=== PATIENT | male | born 1935 | race Caucasian/White ===

== ENCOUNTER 2016-07-11 09:49 | Inpatient (IN) | payer OTHER ==
[2016-07-11] MEDS ORDERED: NS 1,000 ML IV ONE (09:52)
--- NOTE | 2016-07-11 09:54 | EDPHY ---
H & P Time Seen by Provider: 07/11/16 09:50 HPI/ROS: CHIEF COMPLAINT: Fever HISTORY OF PRESENT ILLNESS: History was provided by the paramedics. This is an 81-year-old male with a history of diabetes who arrives via EMS from assisted living situation ([facility]) in [place]. I am told that he has had fever for the past 2 days. Today his family notes that he is weak and lethargic. They were unable to get him into the car and called 911. Paramedics found him to be tachycardic and hypertensive. His blood sugar was 121. He received 500 cc of IV fluid and route. By dope firer's report, he has not had cough. His children and have arrived and provided additional history. The daughter tells me that he has had a cough on and off recently. He was reportedly found on the floor of his apartment at 5:30 this morning by the staff at his memory care facility. They were able to get him back into bed. At that time he had a temperature 101.6 and was given Tylenol at 6:30 a.m.. When his family was notified they were advised to take him to Urgent Care. However, they were unable to get him into a car, called 911, and he has been transported here. The patient himself tells me that he is in no pain. However, he does have significant memory difficulties at baseline and his daughter tells me that his thinking seems more sluggish than usual today. REVIEW OF SYSTEMS: Patient is unable to provide. Source: Family, EMS Exam Limitations: Clinical condition - Medical/Surgical History Hx Asthma: No Hx Chronic Respiratory Disease: No Hx Diabetes: Yes Hx Cardiac Disease: Yes Hx Renal Disease: No Hx Cirrhosis: No Hx Alcoholism: No Hx HIV/AIDS: No Hx Splenectomy or Spleen Trauma: No Other PMH: 1. Insulin-dependent diabetes. 2. Hypertension. 3. Pituitary gland surgery. 4. Prostate cancer. 5. Hyperlipidemia. 6. left hip replacement summer. 7. GERD. 8. Macular degeneration. 9. Memory impairment. 10. Coronary artery disease - Social History Smoking Status: Former smoker Alcohol Use: None Additional Social History: Lives in a [facility] with his . - Physical Exam Exam: General Appearance: Alert. Vital signs reviewed. Heart rate 112, blood pressure 179/90, room air pulse ox 88%. Afebrile. Eyes: Pupils equal and round, no conjunctival injection, no discharge. Anicteric. ENT, Mouth: Mucous membranes are slightly dry, no oropharyngeal erythema or edema. Neck: No lymphadenopathy, supple. Trachea midline. Respiratory: Lungs sounds are distant to auscultation; no wheezes, rales, or rhonchi. Cardiovascular: Regular rate and rhythm; no murmur, rub, or gallop. Gastrointestinal: Abdomen is soft and nontender, no masses or organomegaly, bowel sounds normal. Skin: Warm and dry, no rashes on exposed skin, normal color. Back: Nontender to palpation over the thoracolumbar spine. No CVAT. Probable lipoma left upper back, lateral to the vertebral column. Extremities: No lower extremity edema, no calf tenderness or swelling. Neurological: Awake. He can provide his name but is unable to state his location or the year. Moving all four extremities easily and equally. CHELSIE. Pupils are small and reactive. Extraocular movements intact. Facial expression symmetric. Tongue midline. Psychiatric: no agitation. Constitutional: Initial Vital Signs Temperature (C) 37.2 C 07/11/16 09:50 Heart Rate 112 H 07/11/16 09:50 Respiratory Rate 19 07/11/16 09:50 Blood Pressure 179/90 H 07/11/16 09:50 O2 Sat (%) 88 L 07/11/16 09:50 O2 Delivery Mode Nasal Cannula O2 (L/minute) 2 Allergies/Adverse Reactions: triazolam [From Halcion] Allergy (Severe, Verified 07/11/16 10:12) Anxiety Home Medications: Medication Instructions Recorded Atorvastatin Calcium [Lipitor 40 40 mg PO DAILY 11/27/15 mg (*)] Clopidogrel Bisulfate [Plavix (*)] 75 mg PO DAILY 11/27/15 Cyanocobalamin [Vitamin B12 (*)] 1,000 mcg PO DAILY 11/27/15 Glucosamine Sulfate [Glucosamine 500 mg PO DAILY 11/27/15 Sulfate 500 MG (*)] Metoprolol Tartrate [Lopressor 25 25 mg PO BID 11/27/15 mg (*)] Pantoprazole Sodium [Protonix 40mg 40 mg PO DAILY 11/27/15 (*)] Somatropin [Humatrope] 0.4 mg SC 11/27/15 Insulin Glargine,Hum.rec.anlog 12 unit SQ HS 12/18/15 [Lanmarisolus Nicholeostar] Aspirin EC [Aspirin EC 325 mg (*)] 325 mg PO DAILY #0 tab 12/19/15 Acetaminophen [Tylenol 325mg (*)] 650 mg PO TID 07/11/16 Bisacodyl [Dulcolax] 10 mg RC Q4D PRN 07/11/16 C/E/Zn/Cu/OM3/DHA/EPA/LUT/ZEAX 2 each PO DAILY 07/11/16 [Preservision Areds 2 Softgel] Calcium Carb W/Vit D [Calcium Carb 500 mg PO BID 07/11/16 W/Vit D 500/200 (*)] Herbals/Supplements -Info Only 1 ea PO DAILY 07/11/16 Levothyroxine [Synthroid 112 mcg 112 mcg PO DAILY06 07/11/16 (*)] Multivitamins [Multivitamin (*)] 1 each PO DAILY 07/11/16 Sennosides/Docusate Sodium 1 each PO BID 07/11/16 [Senokot-S (OTC)] Sodium Chloride [Salt Tablet] 1 gm PO DAILY 07/11/16 celeCOXIB [Celebrex (*)] 200 mg PO DAILY 07/11/16 Medical Decision Making ED Course/Re-evaluation: 81-year-old male with some cognitive dysfunction at baseline who has had a change in mental status this morning with increasing lethargy and confusion, according to his family. He has been febrile with a cough. Was found on the ground in his apartment this morning; no fall was witnessed. My initial impression was that his altered mental status was likely secondary to fever. However, given the possibility of a fall, head CT was performed. This shows atrophy but no bleed or acute changes. He does not meet sepsis criteria. He was tachycardic on arrival but had no other laboratory or vital sign findings that would suggest sepsis. Lactate was 1.2. He was given Tylenol for treatment of fever. He received 2 L of normal saline in the emergency department. He is noted to be hyponatremic with a sodium of 131. Chest x-ray suggestive of congestive heart failure, but the possibility of bilateral infiltrates is also raised in the radiology report. Pneumonia is more consistent with his clinical presentation. He was given a dose of cefepime , with the thought that he lives in a long term setting. Urinalysis, cath urine, is negative for infection. Blood cultures have been obtained. He has had pituitary surgery and is on hemoglobin hormone and thyroid replacement. He was given hydrocortisone, stress dose. Influenza test was positive for influenza A. He was given Tamiflu in the emergency department. He is being admitted for observation and further treatment as warranted. I suspect that his encephalopathy will clear as his influenza subsides. Differential Diagnosis: I considered a differential diagnosis including but not limited to pneumonia, urinary tract infection, viral syndrome, and influenza. I considered a differential diagnosis of altered all mental status including but not limited to hypoglycemia, infectious process, electrolyte abnormality, head injury and intoxicants. - Data Points Laboratory Results: Laboratory Results 07/11/16 09:50 07/11/16 09:50 07/11/16 07/11/16 07/11/16 11:27 11:01 10:25 WBC RBC Hgb Hct MCV MCH MCHC RDW Plt Count MPV Neut % (Auto) Lymph % (Auto) [place] % (Auto) Eos % (Auto) Baso % (Auto) Nucleat RBC Rel Count Absolute Neuts (auto) Absolute Lymphs (auto) Absolute Monos (auto) Absolute Eos (auto) Absolute Basos (auto) Absolute Nucleated RBC Immature Gran % Immature Gran # PT INR APTT VBG Lactic Acid 1.2 mmol/L (0.7-2.1) Sodium Potassium Chloride Carbon Dioxide Anion Gap BUN Creatinine Estimated GFR Glucose Calcium Total Bilirubin Urine Color YELLOW Urine Appearance CLEAR Urine pH 7.0 (5.0-7.5) Ur Specific [place] 1.014 (1.002-1.030) Urine Protein NEGATIVE (NEGATIVE) Urine Ketones TRACE H (NEGATIVE) Urine Blood NEGATIVE (NEGATIVE) Urine Nitrate NEGATIVE (NEGATIVE) Urine Bilirubin NEGATIVE (NEGATIVE) Urine Urobilinogen NEGATIVE EU (0.2-1.0) Ur Leukocyte Esterase NEGATIVE (NEGATIVE) Urine Glucose NEGATIVE (NEGATIVE) Influenza Typ A,B (DFA) TNP Influenza A & B (PCR) POSITIVE FLU A H (NEGATIVE) 07/11/16 09:50 WBC 5.31 10^3/uL (3.80-9.50) RBC 5.17 10^6/uL (4.40-6.38) Hgb 15.5 g/dL (13.7-17.5) Hct 44.0 % (40.0-51.0) MCV 85.1 fL (81.5-99.8) MCH 30.0 pg (27.9-34.1) MCHC 35.2 g/dL (32.4-36.7) RDW 15.1 % (11.5-15.2) Plt Count 149 L 10^3/uL (150-400) MPV 12.0 H fL (8.7-11.7) Neut % (Auto) 70.4 % (39.3-74.2) Lymph % (Auto) 13.9 L % (15.0-45.0) [place] % (Auto) 14.9 H % (4.5-13.0) Eos % (Auto) 0.2 L % (0.6-7.6) Baso % (Auto) 0.4 % (0.3-1.7) Nucleat RBC Rel Count 0.0 % (0.0-0.2) Absolute Neuts (auto) 3.74 10^3/uL (1.70-6.50) Absolute Lymphs (auto) 0.74 L 10^3/uL (1.00-3.00) Absolute Monos (auto) 0.79 10^3/uL (0.30-0.80) Absolute Eos (auto) 0.01 L 10^3/uL (0.03-0.40) Absolute Basos (auto) 0.02 10^3/uL (0.02-0.10) Absolute Nucleated RBC 0.00 10^3/uL (0-0.01) Immature Gran % 0.2 % (0.0-1.1) Immature Gran # 0.01 10^3/uL (0.00-0.10) PT 15.4 H SEC (12.0-15.0) INR 1.22 H (0.83-1.16) APTT 32.6 SEC (23.0-38.0) VBG Lactic Acid Sodium 131 L mEq/L (134-144) Potassium 4.1 mEq/L (3.5-5.2) Chloride 97 mEq/L (97-110) Carbon Dioxide 23 mEq/l (22-31) Anion Gap 11 mEq/L (8-16) BUN 12 mg/dL (7-23) Creatinine 0.9 mg/dL (0.7-1.3) Estimated GFR > 60 Glucose 103 H mg/dL (70-100) Calcium 8.7 mg/dL (8.5-10.4) Total Bilirubin 1.0 mg/dL (0.1-1.4) Urine Color Urine Appearance Urine pH Ur Specific [place] Urine Protein Urine Ketones Urine Blood Urine Nitrate Urine Bilirubin Urine Urobilinogen Ur Leukocyte Esterase Urine Glucose Influenza Typ A,B (DFA) Influenza A & B (PCR) Medications Given: Discontinued Medications Acetaminophen (Tylenol) 1,000 mg PO EDNOW ONE Stop: 07/11/16 11:22 Last Admin: 07/11/16 11:31 Dose: Not Given Hydrocortisone (Solucortef) 100 mg IVP EDNOW ONE Stop: 07/11/16 10:30 Last Admin: 07/11/16 11:12 Dose: 100 mg Sodium Chloride (Ns) 1,000 mls @ 0 mls/hr IV ONCE ONE PRN Reason: Wide Open Stop: 07/11/16 09:53 Last Admin: 07/11/16 10:08 Dose: 1,000 mls Cefepime HCl 1 gm/ Dextrose 50 mls @ 100 mls/hr IV EDNOW ONE PRN Reason: Protocol Stop: 07/11/16 12:02 Last Admin: 07/11/16 12:29 Dose: 50 mls Metoprolol Tartrate (Lopressor Injection) 5 mg IVP ONCE ONE Stop: 07/11/16 15:01 Last Admin: 07/11/16 16:16 Dose: 5 mg Departure - Departure Disposition: Acute Care Hospital Not [facility] Clinical Impression: Influenza due to influenza virus, type A, human Condition: Fair
[2016-07-11 10:06] LABS: % IMMATURE GRANULYOCYTES 0.2 % (0.0-1.1); ABSOLUTE IMMATURE GRANULOCYTES 0.01 10^3/uL (0.00-0.10); ADD DIFF? NO; ADD MORPH? NO; ADD SCAN? NO; ATYPICAL LYMPHOCYTE FLAG 20 (0-99); FRAGMENT RBC FLAG 0 (0-99); HEMOGLOBIN 15.5 g/dL (13.7-17.5); LEFT SHIFT FLG 0 (0-99); LIPEMIA HEMOLYSIS FLAG 90 (0-99); MEAN CELL HEMOGLOBIN CONCENTR. 35.2 g/dL (32.4-36.7); MEAN CELL VOLUME 85.1 fL (81.5-99.8); PLATELET CLUMPS FLAG 10 (0-99); PLATELET COUNT 149 10^3/uL (150-400); RED BLOOD CELL COUNT 5.17 10^6/uL (4.40-6.38); RED CELL DISTRIBUTION WIDTH 15.1 % (11.5-15.2)
[2016-07-11 10:18] LABS: INR 1.22 (0.83-1.16); PROTIME(PATIENT) 15.4 SEC (12.0-15.0)
[2016-07-11 10:19] LABS: APTT 32.6 SEC (23.0-38.0)
[2016-07-11] MEDS ORDERED: HYDROCORTISONE 100 MG/2 ML VIAL IVP ONE (10:29)
[2016-07-11 10:36] LABS: ANION GAP 11 mEq/L (8-16); CALCIUM 8.7 mg/dL (8.5-10.4); CARBON DIOXIDE 23 mEq/l (22-31); CHLORIDE 97 mEq/L (97-110); CREATININE 0.9 mg/dL (0.7-1.3); GLOMERULAR FILTRATION RATE > 60; GLUCOSE 103 mg/dL (70-100); POTASSIUM 4.1 mEq/L (3.5-5.2); SODIUM 131 mEq/L (134-144)
--- NOTE | 2016-07-11 11:13 | DX ---
Chest, Two Views July 11, 2016 at 0936 Hours History: Shortness of breath, meets sepsis criteria, suspected infection. Comparison: October 2015. Findings: Cardiac silhouette is mildly enlarged. Atherosclerotic aorta. Median sternotomy wires. Bila teral interstitial opacities in the mid and lower lung nichols, probably representing pulmonary edema. Impressions: 1. Suspect congestive heart failure. 2. Superimposed interstitial pneumonia bilateral lower lobes cannot be excluded.
[2016-07-11 11:16] LABS: COLOR YELLOW; LEUKOCYTE ESTERASE,URINE NEGATIVE (NEGATIVE); NITRITE,URINE NEGATIVE (NEGATIVE)
[2016-07-11] MEDS ORDERED: ACETAMINOPHEN 500 MG TAB PO ONE (11:21)
--- NOTE | 2016-07-11 11:21 | CT ---
CT Brain (Without Contrast) July 11, 2016 at 1045 Hours History: Altered mental status. Comparison: October 2014. Technique: Axial computed tomographic images of the brain without contrast. Dose reduction techniques were utilized. Findings: Ventricles, cisterns, and sulci are widened consistent with atrophy. No hydrocephalus, midl ine shift/herniation, or epidural/subdural hematomas. No acute intraparenchymal hemorrhage or mass ef fect. Cerebrovascular atherosclerosis. Hypodensities in the white matter of bilateral cerebral hemisp heres. Bone windows demonstrate no displaced fractures. Moderate bilateral ethmoid and right maxilla ry sinusitis with mucosal thickening. Postsurgical changes sphenoid sinuses. Empty sella turcica from prior pituitary resection. Impressions: 1. Moderate atrophy. 2. No acute hemorrhage, hydrocephalus, or mass effect. 3. Cerebrovascular atherosclerosis. 4. No definite acute infarct. 5. Moderate microvascular ischemic gliosis. 6. Moderate sinusitis, worse in the right maxillary sinus. 7. Consider MRI of the brain without and with contrast enhancement, if there is continued clinical co ncern.
[2016-07-11] MEDS ORDERED: ACETAMINOPHEN 650 MG SUPP PR ONE (11:23)
[2016-07-11] MEDS ORDERED: CEFEPIME HCL 1 GM in D5W 50 ML IV ONE (11:33)
[2016-07-11] MEDS ORDERED: ACETAMINOPHEN 650 MG SUPP PR PRN (12:00)
[2016-07-11] MEDS: OSELTAMIVIR PHOSPHATE 75 MG CAP PO ONE (13:00)
[2016-07-11] MEDS ORDERED: OSELTAMIVIR PHOSPHATE 75 MG CAP ONE (13:01)
[2016-07-11] MEDS ORDERED: ALBUTEROL 3 ML DEYVIAL IH PRN (14:25)
[2016-07-11] MEDS ORDERED: ONDANSETRON DISINTEGRATING 4 MG TAB PO PRN (14:25)
[2016-07-11] MEDS ORDERED: ACETAMINOPHEN 325 MG TAB PO PRN (14:25)
[2016-07-11] MEDS ORDERED: ONDANSETRON 4 MG/2 ML VIAL IVP PRN (14:25)
[2016-07-11] MEDS ORDERED: NS 1,000 ML IV SCH (14:30)
[2016-07-11] MEDS ORDERED: BISACODYL 10 MG SUPP PR PRN (14:30)
--- NOTE | 2016-07-11 14:41 | PDGENHP ---
History and Physical - Chief Complaint fever - History of Present Illness 81 yo male with h/o cognitive dysfunction and CAD presents to ED from his memory care unit where he lives with his who has alzheimer's, with fever and weakness. He was found on the floor in his room this morning and they were able to get him back to bed. He had a fever of 101.6 and was profoundly weak. His daughter reports he has been coughing, but had a dramatic change in status this morning. He has not complained of CP, SOB, N/V/D or abdominal pain. In the ED, CXR was suspicious for PNA and Influenza is positive. He is admitted to the hospital for further management. History Information - Allergies/Home Medication List Allergies/Adverse Reactions: triazolam [From Halcion] Allergy (Severe, Verified 07/11/16 10:12) Anxiety Home Medications: Atorvastatin Calcium [Lipitor 40 mg (*)] 40 mg PO DAILY 11/27/15 [Last Taken 02/24 07:30] Clopidogrel Bisulfate [Plavix (*)] 75 mg PO DAILY 11/27/15 [Last Taken 12/10/15] Cyanocobalamin [Vitamin B12 (*)] 1,000 mcg PO DAILY 11/27/15 [Last Taken ] Glucosamine Sulfate [Glucosamine Sulfate 500 MG (*)] 500 mg PO DAILY 11/27/15 [ Last Taken 12/10/15] Metoprolol Tartrate [Lopressor 25 mg (*)] 25 mg PO BID 11/27/15 [Last Taken 02/24 07:30] Pantoprazole Sodium [Protonix 40mg (*)] 40 mg PO DAILY 11/27/15 [Last Taken 02/24 07:30] Somatropin [Humatrope] 0.4 mg SC HS 11/27/15 [Last Taken 12/17/15] Insulin Glargine,Hum.rec.anlog [Lantus Solostar] 12 unit SQ HS 12/18/15 [Last Taken 12/17/15] Acetaminophen [Tylenol 325mg (*)] 650 mg PO TID 07/11/16 [Last Taken Unknown] Bisacodyl [Dulcolax] 10 mg RC Q4D PRN 07/11/16 [Last Taken Unknown] C/E/Zn/Cu/OM3/DHA/EPA/LUT/ZEAX [Preservision Areds 2 Softgel] 2 each PO DAILY [Last Taken Unknown] Calcium Carb W/Vit D [Calcium Carb W/Vit D 500/200 (*)] 500 mg PO BID 07/11/16 [ Last Taken Unknown] Herbals/Supplements -Info Only 1 ea PO DAILY 07/11/16 [Last Taken Unknown] Levothyroxine [Synthroid 112 mcg (*)] 112 mcg PO DAILY06 07/11/16 [Last Taken Unknown] Multivitamins [Multivitamin (*)] 1 each PO DAILY 07/11/16 [Last Taken Unknown] Sennosides/Docusate Sodium [Senokot-S (OTC)] 1 each PO BID 07/11/16 [Last Taken Unknown] Sodium Chloride [Salt Tablet] 1 gm PO DAILY 07/11/16 [Last Taken Unknown] celeCOXIB [Celebrex (*)] 200 mg PO DAILY 07/11/16 [Last Taken Unknown] I have personally reviewed and updated: family history, medical history, social history, surgical history - Past Medical History coronary artery disease, dementia, diabetes type 2, GERD, hypertension, hyperlipidemia - Surgical History Additional surgical history: left hip replacement summer 2015, pituitary gland surgery - Family History Additional family history: mom of a brain tumor, dad of emphysema - Social History Smoking Status: Former smoker Alcohol Use: Rarely Drug Use: None Additional social history: Lives at Memory care unit with his , who has dementia. Pt has some cognitive dysfunction Review of Systems ROS: 10pt was reviewed & negative except for what was stated in HPI & below Physical Exam Temp Pulse Resp BP Pulse Ox 37.7 C 113 H 20 179/99 H 96 07/11/16 13:46 07/11/16 13:46 07/11/16 13:46 07/11/16 13:46 07/11/16 13:46 O2 (L/minute) 2.5 Constitutional: no apparent distress Eyes: PERRL Ears, Nose, Mouth, Throat: dry mucous membranes Cardiovascular: tachycardia Respiratory: no respiratory distress Gastrointestinal: normoactive bowel sounds, soft, non-tender abdomen Skin: warm Psychiatric: encephalopathic Lab Data & Imaging Review 07/11/16 09:50 07/11/16 09:50 WBC 5.31 10^3/uL (3.80-9.50) 07/11/16 09:50 RBC 5.17 10^6/uL (4.40-6.38) 07/11/16 09:50 Hgb 15.5 g/dL (13.7-17.5) 07/11/16 09:50 Hct 44.0 % (40.0-51.0) 07/11/16 09:50 MCV 85.1 fL (81.5-99.8) 07/11/16 09:50 MCH 30.0 pg (27.9-34.1) 07/11/16 09:50 MCHC 35.2 g/dL (32.4-36.7) 07/11/16 09:50 RDW 15.1 % (11.5-15.2) 07/11/16 09:50 Plt Count 149 10^3/uL (150-400) L 07/11/16 09:50 MPV 12.0 fL (8.7-11.7) H 07/11/16 09:50 Neut % (Auto) 70.4 % (39.3-74.2) 07/11/16 09:50 Lymph % (Auto) 13.9 % (15.0-45.0) L 07/11/16 09:50 [place] % (Auto) 14.9 % (4.5-13.0) H 07/11/16 09:50 Eos % (Auto) 0.2 % (0.6-7.6) L 07/11/16 09:50 Baso % (Auto) 0.4 % (0.3-1.7) 07/11/16 09:50 Nucleat RBC Rel Count 0.0 % (0.0-0.2) 07/11/16 09:50 Absolute Neuts (auto) 3.74 10^3/uL (1.70-6.50) 07/11/16 09:50 Absolute Lymphs (auto) 0.74 10^3/uL (1.00-3.00) L 07/11/16 09:50 Absolute Monos (auto) 0.79 10^3/uL (0.30-0.80) 07/11/16 09:50 Absolute Eos (auto) 0.01 10^3/uL (0.03-0.40) L 07/11/16 09:50 Absolute Basos (auto) 0.02 10^3/uL (0.02-0.10) 07/11/16 09:50 Absolute Nucleated RBC 0.00 10^3/uL (0-0.01) 07/11/16 09:50 Immature Gran % 0.2 % (0.0-1.1) 07/11/16 09:50 Immature Gran # 0.01 10^3/uL (0.00-0.10) 07/11/16 09:50 PT 15.4 SEC (12.0-15.0) H 07/11/16 09:50 INR 1.22 (0.83-1.16) H 07/11/16 09:50 APTT 32.6 SEC (23.0-38.0) 07/11/16 09:50 VBG Lactic Acid 1.2 mmol/L (0.7-2.1) 07/11/16 11:27 Sodium 131 mEq/L (134-144) L 07/11/16 09:50 Potassium 4.1 mEq/L (3.5-5.2) 07/11/16 09:50 Chloride 97 mEq/L (97-110) 07/11/16 09:50 Carbon Dioxide 23 mEq/l (22-31) 07/11/16 09:50 Anion Gap 11 mEq/L (8-16) 07/11/16 09:50 BUN 12 mg/dL (7-23) 07/11/16 09:50 Creatinine 0.9 mg/dL (0.7-1.3) 07/11/16 09:50 Estimated GFR > 60 07/11/16 09:50 Glucose 103 mg/dL (70-100) H 07/11/16 09:50 Calcium 8.7 mg/dL (8.5-10.4) 07/11/16 09:50 Total Bilirubin 1.0 mg/dL (0.1-1.4) 07/11/16 09:50 Urine Color YELLOW 07/11/16 11:01 Urine Appearance CLEAR 07/11/16 11:01 Urine pH 7.0 (5.0-7.5) 07/11/16 11:01 Ur Specific [place] 1.014 (1.002-1.030) 07/11/16 11:01 Urine Protein NEGATIVE (NEGATIVE) 07/11/16 11:01 Urine Ketones TRACE (NEGATIVE) H 07/11/16 11:01 Urine Blood NEGATIVE (NEGATIVE) 07/11/16 11:01 Urine Nitrate NEGATIVE (NEGATIVE) 07/11/16 11:01 Urine Bilirubin NEGATIVE (NEGATIVE) 07/11/16 11:01 Urine Urobilinogen NEGATIVE EU (0.2-1.0) 07/11/16 11:01 Ur Leukocyte Esterase NEGATIVE (NEGATIVE) 07/11/16 11:01 Urine Glucose NEGATIVE (NEGATIVE) 07/11/16 11:01 Influenza Typ A,B (DFA) TNP 07/11/16 10:25 Influenza A & B (PCR) POSITIVE FLU A (NEGATIVE) H 07/11/16 10:25 Assessment & Plan Assessment: Acute hypoxemic respiratory failure secondary to influenza complicated by possible PNA - supportive care with O2, prn nebs, fluids. Treat with Tamiflu. Appearance on CXR may be viral, though will cover for bacterial PNA with Levaquin. Speech / swallow eval, NPO until cleared. Aspiration precautions. Acute encephalopathy - likely secondary to infection and volume depletion. NPO for now until speech eval. Hyponatremia - mild, suspect hypovolemia given acute illness and poor oral intake. He does take salt tablets, will continue these, along with NS and repeat Na level in am. DM - on insulin, will give reduced dose due to poor oral intake. CAD - stable, continue ASA, statin, BB Hypertension - BP elevated on arrival, continue Coreg when cleared for PO. Will give IV Metoprolol dose now and prn IV Hydralazine until he's able to resume his oral Coreg. Dementia - lives in memory care, CM consult requested. DVT PPLX - Lovenox DNR Dispo - inpt, will need >48 hrs hospitalization for ongoing management of influenza and associated hypoxemia and PNA
[2016-07-11] MEDS ORDERED: METOPROLOL TARTRATE 5 MG/5 ML INJ IVP ONE (15:00)
--- NOTE | 2016-07-11 15:33 | US ---
Ultrasound Venous Duplex/Doppler left Leg History: Pain and swelling. Findings: Ultrasound venous duplex and Doppler imaging of the common femoral vein, femoral vein, pop liteal vein, calf veins, greater saphenous vein origin, and contralateral common femoral vein demonst rates normal compressibility, color flow, and Doppler flow without deep venous thrombosis. Impression: No deep venous thrombosis left leg.
[2016-07-11] MEDS: METOPROLOL TARTRATE 25 MG TAB PO SCH ×2 (15:49→21:00)
[2016-07-11] MEDS: SODIUM CHLORIDE 1,000 MG TAB PO SCH (15:50)
[2016-07-11] MEDS ORDERED: D50W 25 GM/50 ML SYR IVP PRN (18:04)
[2016-07-11] MEDS: OSELTAMIVIR PHOSPHATE 75 MG CAP PO SCH (18:44)
[2016-07-11] MEDS: SENNOSIDES/DOCUSATE SODIUM TAB PO SCH (21:00)
[2016-07-11] MEDS: SOMATROPIN SC SCH (21:00)
[2016-07-11] MEDS: INSULIN GLARGINE 100 UNITS/ML SYRINGE SC SCH (21:32)
[2016-07-11] MEDS: hydrALAZINE 20 MG/ML VIAL IVP PRN (21:43)
[2016-07-11] MEDS ORDERED: INSULIN GLARGINE 100 UNITS/ML SYRINGE SC ONE (22:00)
[2016-07-12 05:09] LABS: ANION GAP 12 mEq/L (8-16); CALCIUM 8.1 mg/dL (8.5-10.4); CARBON DIOXIDE 22 mEq/l (22-31); CHLORIDE 100 mEq/L (97-110); CREATININE 0.9 mg/dL (0.7-1.3); GLOMERULAR FILTRATION RATE > 60; GLUCOSE 104 mg/dL (70-100); POTASSIUM 3.9 mEq/L (3.5-5.2); SODIUM 134 mEq/L (134-144)
[2016-07-12] MEDS: LEVOTHYROXINE 112 MCG TAB PO SCH (06:07)
[2016-07-12] MEDS: INSULIN LISPRO 100 UNIT/ML SC SCH ×3 (08:33→16:17)
[2016-07-12] MEDS: ENOXAPARIN 40 MG/0.4 ML SYR SC SCH (10:20)
[2016-07-12] MEDS: SENNOSIDES/DOCUSATE SODIUM TAB PO SCH ×2 (11:25→21:32)
[2016-07-12] MEDS: CLOPIDOGREL BISULFATE 75 MG TAB PO SCH (11:25)
[2016-07-12] MEDS: SODIUM CHLORIDE 1,000 MG TAB PO SCH (11:25)
[2016-07-12] MEDS: METOPROLOL TARTRATE 25 MG TAB PO SCH ×2 (11:26→21:32)
[2016-07-12] MEDS: PANTOPRAZOLE SODIUM 40 MG TAB PO SCH (11:26)
[2016-07-12] MEDS: ASPIRIN EC 325 MG TAB PO SCH (11:26)
[2016-07-12] MEDS: CYANO/VITAMIN B12 1000 MCG TAB PO SCH (11:26)
[2016-07-12] MEDS: ATORVASTATIN CALCIUM 40 MG TAB PO SCH (11:26)
[2016-07-12] MEDS: OSELTAMIVIR PHOSPHATE 75 MG CAP PO SCH ×2 (11:27→16:27)
[2016-07-12] MEDS: OSELTAMIVIR PHOSPHATE 75 MG CAP PO ONE (13:09)
--- NOTE | 2016-07-12 14:26 | HOSPPROG ---
Hospitalist Progress Note Assessment/Plan: * Influenza A - Tamiflu * Pneumonia -Levaquin * Dementia with acute metabolic encephalopathy * CAD -ASA, plavix, metoprolol * DM II -lantus Subjective: Denies complaints Objective: Vital Signs Temp Pulse Resp BP Pulse Ox 36.6 C 107 H 19 179/97 H 99 07/12/16 11:15 07/12/16 11:26 07/12/16 11:15 07/12/16 11:26 07/12/16 11:15 Laboratory Results 07/12/16 04:29 07/11/16 07/12/16 07/13/16 05:59 05:59 05:59 Intake Total 2811 Output Total 2600 Balance 211 PT 15.4 SEC (12.0-15.0) H 07/11/16 09:50 INR 1.22 (0.83-1.16) H 07/11/16 09:50 - Physical Exam Constitutional: no apparent distress, appears nourished, not in pain Cardiovascular: regular rate and rhythym, no murmur, rub, or gallop Respiratory: no respiratory distress, no rales or rhonchi, clear to auscultation Gastrointestinal: normoactive bowel sounds, soft, non-tender abdomen, no palpable masses Skin: no rashes or abrasions, no fluctuance, no induration Neurologic: No AAOx3 Psychiatric: encephalopathic, poor insight, poor judgement, poor memory, No interacting appropriately, No agitated ICD10 Worksheet Patient Problems: Problems Problem Status Diagnosed Influenza A Acute Primary localized osteoarthritis of left hip Acute
[2016-07-12] MEDS: ACETAMINOPHEN 325 MG TAB PO SCH ×2 (16:27→21:34)
[2016-07-12] MEDS: INSULIN GLARGINE 100 UNITS/ML SYRINGE SC SCH (21:36)
[2016-07-12] MEDS: SOMATROPIN SC SCH (21:41)
[2016-07-13] MEDS: LEVOTHYROXINE 112 MCG TAB PO SCH (05:09)
[2016-07-13] MEDS: INSULIN LISPRO 100 UNIT/ML SC SCH ×3 (08:30→18:02)
[2016-07-13] MEDS: ACETAMINOPHEN 325 MG TAB PO SCH ×3 (08:51→20:23)
[2016-07-13] MEDS: PANTOPRAZOLE SODIUM 40 MG TAB PO SCH (08:52)
[2016-07-13] MEDS: OSELTAMIVIR PHOSPHATE 75 MG CAP PO SCH ×2 (08:53→18:02)
[2016-07-13] MEDS: CLOPIDOGREL BISULFATE 75 MG TAB PO SCH (08:53)
[2016-07-13] MEDS: SENNOSIDES/DOCUSATE SODIUM TAB PO SCH ×2 (08:53→20:22)
[2016-07-13] MEDS: ATORVASTATIN CALCIUM 40 MG TAB PO SCH (08:53)
[2016-07-13] MEDS: ASPIRIN EC 325 MG TAB PO SCH (08:53)
[2016-07-13] MEDS: CYANO/VITAMIN B12 1000 MCG TAB PO SCH (08:53)
[2016-07-13] MEDS: PRESERVISION AREDS 2 EYE VITAMIN 1 EACH PO SCH (08:53)
[2016-07-13] MEDS: METOPROLOL TARTRATE 25 MG TAB PO SCH ×2 (08:53→20:23)
[2016-07-13] MEDS: ENOXAPARIN 40 MG/0.4 ML SYR SC SCH (08:54)
--- NOTE | 2016-07-13 16:38 | HOSPPROG ---
Hospitalist Progress Note Assessment/Plan: * Influenza A - Tamiflu * Pneumonia -Levaquin * Dementia with acute metabolic encephalopathy * CAD -ASA, plavix, metoprolol * DM II -lantus Subjective: Ready to take galvan out, was placed in ER due to severe lethargy. Objective: Vital Signs Temp Pulse Resp BP Pulse Ox 36.8 C 75 21 H 168/89 H 98 07/13/16 16:00 07/13/16 16:00 07/13/16 16:00 07/13/16 16:00 07/13/16 16:00 Laboratory Results 07/12/16 04:29 07/12/16 07/13/16 07/14/16 05:59 05:59 05:59 Intake Total 2811 Output Total 2600 1575 1001 Balance 211 -1575 -1001 PT 15.4 SEC (12.0-15.0) H 07/11/16 09:50 INR 1.22 (0.83-1.16) H 07/11/16 09:50 - Physical Exam Constitutional: no apparent distress, appears nourished, not in pain Cardiovascular: regular rate and rhythym, no murmur, rub, or gallop Respiratory: no respiratory distress, no rales or rhonchi, clear to auscultation Gastrointestinal: normoactive bowel sounds, soft, non-tender abdomen, no palpable masses Skin: no rashes or abrasions, no fluctuance, no induration Psychiatric: poor insight, poor judgement, poor memory, No encephalopathic, No agitated ICD10 Worksheet Patient Problems: Problems Problem Status Diagnosed Influenza A Acute Primary localized osteoarthritis of left hip Acute
[2016-07-13] MEDS: INSULIN GLARGINE 100 UNITS/ML SYRINGE SC SCH (20:25)
[2016-07-13] MEDS: SOMATROPIN SC SCH (21:38)
[2016-07-14] MEDS ORDERED: traZODone 50 MG TAB PO PRN (01:20)
[2016-07-14] MEDS: hydrALAZINE 20 MG/ML VIAL IVP PRN (02:39)
[2016-07-14 07:47] VITALS: O2SAT 94
[2016-07-14] MEDS: ATORVASTATIN CALCIUM 40 MG TAB PO SCH (08:39)
[2016-07-14] MEDS: CYANO/VITAMIN B12 1000 MCG TAB PO SCH (08:39)
[2016-07-14] MEDS: CLOPIDOGREL BISULFATE 75 MG TAB PO SCH (08:39)
[2016-07-14] MEDS: ACETAMINOPHEN 325 MG TAB PO SCH (08:39)
[2016-07-14] MEDS: PANTOPRAZOLE SODIUM 40 MG TAB PO SCH (08:40)
[2016-07-14] MEDS: LEVOTHYROXINE 112 MCG TAB PO SCH (08:40)
[2016-07-14] MEDS: ENOXAPARIN 40 MG/0.4 ML SYR SC SCH (08:40)
[2016-07-14] MEDS: METOPROLOL TARTRATE 25 MG TAB PO SCH (08:40)
[2016-07-14] MEDS: ASPIRIN EC 325 MG TAB PO SCH (08:40)
[2016-07-14] MEDS: PRESERVISION AREDS 2 EYE VITAMIN 1 EACH PO SCH (08:46)
[2016-07-14] MEDS: SENNOSIDES/DOCUSATE SODIUM TAB PO SCH (08:46)
[2016-07-14] MEDS: OSELTAMIVIR PHOSPHATE 75 MG CAP PO SCH (08:46)
[2016-07-14] MEDS: INSULIN LISPRO 100 UNIT/ML SC SCH ×2 (08:47→13:16)
--- NOTE | 2016-07-14 09:21 | PDIAF ---
- Diagnosis Diagnosis: influenza Code Status: Do Not Resuscitate - Medication Management Discharge Medications: Medications to Continue on Transfer Atorvastatin Calcium [Lipitor 40 mg (*)] 40 mg PO DAILY 11/27/15 [Last Taken 02/24 07:30] Clopidogrel Bisulfate [Plavix (*)] 75 mg PO DAILY 11/27/15 [Last Taken 12/10/15] Cyanocobalamin [Vitamin B12 (*)] 1,000 mcg PO DAILY 11/27/15 [Last Taken ] Glucosamine Sulfate [Glucosamine Sulfate 500 MG (*)] 500 mg PO DAILY 11/27/15 [ Last Taken 12/10/15] Metoprolol Tartrate [Lopressor 25 mg (*)] 25 mg PO BID 11/27/15 [Last Taken 02/24 07:30] Pantoprazole Sodium [Protonix 40mg (*)] 40 mg PO DAILY 11/27/15 [Last Taken 02/24 07:30] Somatropin [Humatrope] 0.4 mg SC HS 11/27/15 [Last Taken 12/17/15] Insulin Glargine,Hum.rec.anlog [Lantus Solostar] 12 unit SQ HS 12/18/15 [Last Taken 12/17/15] Aspirin EC [Aspirin EC 325 mg (*)] 325 mg PO DAILY #0 tab 12/19/15 [Last Taken Unknown] Acetaminophen [Tylenol 325mg (*)] 650 mg PO TID 07/11/16 [Last Taken Unknown] Bisacodyl [Dulcolax] 10 mg RC Q4D PRN 07/11/16 [Last Taken Unknown] C/E/Zn/Cu/OM3/DHA/EPA/LUT/ZEAX [Preservision Areds 2 Softgel] 2 each PO DAILY [Last Taken Unknown] Calcium Carb W/Vit D [Calcium Carb W/Vit D 500/200 (*)] 500 mg PO BID 07/11/16 [ Last Taken Unknown] Herbals/Supplements -Info Only 1 ea PO DAILY 07/11/16 [Last Taken Unknown] Levothyroxine [Synthroid 112 mcg (*)] 112 mcg PO DAILY06 07/11/16 [Last Taken Unknown] Multivitamins [Multivitamin (*)] 1 each PO DAILY 07/11/16 [Last Taken Unknown] Sennosides/Docusate Sodium [Senokot-S] 1 each PO BID 07/11/16 [Last Taken Unknown] celeCOXIB [Celebrex (*)] 200 mg PO DAILY 07/11/16 [Last Taken Unknown] Oseltamivir Phosphate [Tamiflu 75 mg (*)] 75 mg PO BIDMEAL #0 cap 07/14/16 [ Last Taken Unknown] [facility] Antibiotic Stop Date: 07/16/16 (5 more doses Tamiflu then stop) Discharge Medications: Refer to the Discharge Home Medication list for PRN reason. - Orders Services needed: Physical Therapy, Occupational Therapy Diet Texture: Regular Texture Diet, Thin Liquids, Meds Whole w/Liquids - Labs/Radiology BMP Date: 07/16/16 (follow-up hyponatremia) - Follow Up Care Current Providers and Referrals: Berto Schmidt DO [Primary Care Provider] -
[2016-07-14 11:41] VITALS: BP 156/101; PULSE 75; RESP 20; TEMP 97.9
--- NOTE | 2016-07-14 15:37 | GDS ---
[f rep st] DISCHARGE SUMMARY DISCHARGE DIAGNOSES: 1. Influenza A. 2. Pneumonia. 3. Dementia with acute metabolic encephalopathy. 4. Coronary artery disease. 5. Diabetes type 2. HISTORY: The patient is an 81-year-old male who lives in memory care with his . He presented wi th fever and weakness. He was found on the floor in his room with a fever of 101.6 and profoundly we ak. He was very confused. Influenza A was positive. There is a suspicion for a secondary bacterial pneumonia as well and he was also given antibiotics in addition to Tamiflu. He was admitted to the hospital and did have improvement, but remains very weak. He does need jail facility prio r to returning back to the Memory Care Unit. I believes he has had enough antibiotic and does not ne ed any further upon hospital discharge, but we will complete a course of Tamiflu. DISCHARGE MEDICATIONS: Please see computer record for full detailed list. New medications: Tamiflu 75 mg p.o. b.i.d. ADDITIONAL DISCHARGE INSTRUCTIONS: 1. Transfer to jail facility for [facility]. 2. Five more doses of Tamiflu and then it can be discontinued. Less than 30 minutes' time was spent arranging this discharge. The patient was seen and examined by me on the day of discharge. /[id number]/MODL
== END 2016-07-14 16:11 | DRG 865 ==
LOC: EDUNIT# → F3E 13:39
PROVIDERS: ADMIT Hospitalist; ATTEND Hospitalist
DX: J10.81 Influenza due to other identified influenza virus with encephalopathy (principal); J10.00 Influenza due to other identified influenza virus with unspecified type of pneumonia; E87.1 Hypo-osmolality and hyponatremia; F03.90 Unspecified dementia, unspecified severity, without behavioral disturbance, psychotic disturbance, mood disturbance, and anxiety; I25.10 Atherosclerotic heart disease of native coronary artery without angina pectoris; E11.9 Type 2 diabetes mellitus without complications; I10 Essential (primary) hypertension; E78.5 Hyperlipidemia, unspecified; K21.9 Gastro-esophageal reflux disease without esophagitis; Z96.642 Presence of left artificial hip joint; Z79.4 Long term (current) use of insulin; Z87.891 Personal history of nicotine dependence; Z85.46 Personal history of malignant neoplasm of prostate
CPT/HCPCS: 92610-GN; 96365; 97116-GP; 97161-GP; 97163-GP; 97167-GO; 97530-GO; 97535-GO; G8978-GP-CK; G8979-GP-CI; G8987-GO-CL; G8988-GO-CJ; G8996-GN-CH; G8997-GN-CH; G8998-GN-CH; J0360; J0692; J1650; J1815; J1956

== ENCOUNTER 2016-10-05 10:40 | Observation (INO) | payer OTHER ==
--- NOTE | 2016-10-05 10:45 | EDPHY ---
H & P Time Seen by Provider: 10/05/16 10:43 HPI/ROS: CHIEF COMPLAINT: Syncope and vomiting HISTORY OF PRESENT ILLNESS: 81-year-old man was having a normal conversation at lunch and was seated. He was seen to have syncope for between 20 and 30 seconds. He subsequently had multiple episodes of nausea and vomiting and presents the emergency department obtunded and nonverbal. REVIEW OF SYSTEMS: Abdomen: Multiple episodes of vomiting Further history and review of systems unobtainable as the patient is nonverbal on arrival. PAST MEDICAL HISTORY: Includes diabetes, hypertension, prostate cancer, hyperlipidemia, left hip replacement, macular degeneration, memory impairment, coronary disease. Social history: Here with and daughter. Primary care is Dr. Schmidt. General Appearance: Nonverbal and sleepy Eyes: No scleral icterus. ENT, Mouth: Normal mucous membranes. No tongue laceration or abrasion. Respiratory: Normal respiratory effort, breath sounds equal, lungs are clear to auscultation. Cardiovascular: Regular rate and rhythm. Gastrointestinal: Abdomen is soft and non tender. Neurological: Will not follow commands, sleepy and withdraws to pain but no spontaneous movement of extremities. Skin: Warm and dry, no rashes. Musculoskeletal: No neck stiffness. Psychiatric: Unable, nonverbal. Emergency Department course/MDM: Patient had syncope vomiting and then global alteration of his mental status. Noncontrast head CT ordered, glucose is 119. 1145: Results discussed with family. 1148: Discussed with Hernan Hinds at 11:[address] angiography next. 1330: Dr. Green updated, patient was seen by Dr. Hinds and is now more alert and conversant. Per Dr. Hinds he has reviewed the angiogram and does not find any evidence of large vessel occlusion, specifically no basilar artery occlusion. Smoking Status: Former smoker Constitutional: Initial Vital Signs Temperature (C) 36.9 C 10/05/16 10:56 Heart Rate 79 10/05/16 10:56 Respiratory Rate 18 10/05/16 10:56 Blood Pressure 149/84 H 10/05/16 10:56 O2 Sat (%) 98 10/05/16 10:56 O2 Delivery Mode Room Air O2 (L/minute) 2 Allergies/Adverse Reactions: triazolam [From Halcion] Allergy (Severe, Verified 07/11/16 10:12) Anxiety Home Medications: Medication Instructions Recorded Atorvastatin Calcium [Lipitor 40 40 mg PO DAILY 11/27/15 mg (*)] Clopidogrel Bisulfate [Plavix (*)] 75 mg PO DAILY 11/27/15 Cyanocobalamin [Vitamin B12 (*)] 1,000 mcg PO DAILY 11/27/15 Glucosamine Sulfate [Glucosamine 500 mg PO DAILY 11/27/15 Sulfate 500 MG (*)] Metoprolol Tartrate [Lopressor 25 25 mg PO BID 11/27/15 mg (*)] Pantoprazole Sodium [Protonix 40mg 40 mg PO DAILY 11/27/15 (*)] Somatropin [Humatrope] 0.4 mg SC HS 11/27/15 Insulin Glargine,Hum.rec.anlog 12 unit SQ HS 12/18/15 [Lantus Solostar] Aspirin EC [Aspirin EC 325 mg (*)] 325 mg PO DAILY #0 tab 12/19/15 Acetaminophen [Tylenol 325mg (*)] 650 mg PO TID 07/11/16 Bisacodyl [Dulcolax] 10 mg RC Q4D PRN 07/11/16 C/E/Zn/Cu/OM3/DHA/EPA/LUT/ZEAX 2 each PO DAILY 07/11/16 [Preservision Areds 2 Softgel] Calcium Carb W/Vit D [Calcium Carb 500 mg PO BID 07/11/16 W/Vit D 500/200 (*)] Herbals/Supplements -Info Only 1 ea PO DAILY 07/11/16 Levothyroxine [Synthroid 112 mcg 112 mcg PO DAILY06 07/11/16 (*)] Multivitamins [Multivitamin (*)] 1 each PO DAILY 07/11/16 Sennosides/Docusate Sodium 1 each PO BID 07/11/16 [Senokot-S] celeCOXIB [Celebrex (*)] 200 mg PO DAILY 07/11/16 Oseltamivir Phosphate [Tamiflu 75 75 mg PO BIDMEAL #0 cap 07/14/16 mg (*)] Medical Decision Making - Diagnostics EKG Interpretation: 12-lead EKG interpreted by me; official reading is in trace master. My interpretation is sinus rhythm rate 69 with nonspecific inferior T-wave abnormalities. Imaging: Head CT per Dasha negative, unchanged from previous. CT angiography per Dr. Mascorro at 1:45 p.m. shows tight proximal M1 on the right and 70% right vertebral occlusion. Discussed with Dr. Hinds at this time as well. Differential Diagnosis: Differential diagnosis considered for syncope including but not limited to vasovagal syncope, arrhythmia, dehydration, and blood loss. Consult/Admit Bed Type: [place] [id number] - Data Points Laboratory Results: Laboratory Results 10/05/16 10:53 10/05/16 10:53 10/05/16 10/05/16 10/05/16 10:53 10:53 10:51 WBC 6.14 10^3/uL 10^3/uL (3.80-9.50) RBC 5.16 10^6/uL 10^6/uL (4.40-6.38) Hgb 15.7 g/dL g/dL (13.7-17.5) POC Hgb 17.0 gm/dL gm/dL (14.5-17.3) Hct 45.9 % % (40.0-51.0) POC Hct 50 % % (42.8-50.6) MCV 89.0 fL fL (81.5-99.8) MCH 30.4 pg pg (27.9-34.1) MCHC 34.2 g/dL g/dL (32.4-36.7) RDW 15.4 % H % (11.5-15.2) Plt Count 133 10^3/uL L 10^3/uL (150-400) MPV 11.0 fL fL (8.7-11.7) Neut % (Auto) 70.7 % % (39.3-74.2) Lymph % (Auto) 17.9 % % (15.0-45.0) [place] % (Auto) 8.3 % % (4.5-13.0) Eos % (Auto) 2.3 % % (0.6-7.6) Baso % (Auto) 0.3 % % (0.3-1.7) Nucleat RBC Rel Count 0.0 % % (0.0-0.2) Absolute Neuts (auto) 4.34 10^3/uL 10^3/uL (1.70-6.50) Absolute Lymphs (auto) 1.10 10^3/uL 10^3/uL (1.00-3.00) Absolute Monos (auto) 0.51 10^3/uL 10^3/uL (0.30-0.80) Absolute Eos (auto) 0.14 10^3/uL 10^3/uL (0.03-0.40) Absolute Basos (auto) 0.02 10^3/uL 10^3/uL (0.02-0.10) Absolute Nucleated RBC 0.00 10^3/uL 10^3/uL (0-0.01) Immature Gran % 0.5 % % (0.0-1.1) Immature Gran # 0.03 10^3/uL 10^3/uL (0.00-0.10) POC Sodium 135 mEq/L mEq/L (134-144) Sodium 133 mEq/L L mEq/L (134-144) POC Potassium 4.1 mEq/L mEq/L (3.3-5.0) Potassium 4.4 mEq/L mEq/L (3.5-5.2) POC Chloride 97 mEq/L mEq/L (96-108) Chloride 98 mEq/L mEq/L (97-110) Carbon Dioxide 25 mEq/l mEq/l (22-31) Anion Gap 10 mEq/L mEq/L (8-16) POC BUN 17 mg/dL mg/dL (7-23) BUN 16 mg/dL mg/dL (7-23) Creatinine 1.2 mg/dL mg/dL (0.7-1.3) POC Creatinine 1.3 mg/dL mg/dL (0.8-1.5) Estimated GFR 58 Glucose 114 mg/dL H mg/dL (70-100) POC Glucose 117 mg/dL H mg/dL (70-100) Calcium 9.3 mg/dL mg/dL (8.5-10.4) Troponin I < 0.012 ng/mL ng/mL (0-0.034) Point of Care Test Results: 10/05/16 10:51 POC Sodium 135 POC Potassium 4.1 POC Chloride 97 POC BUN 17 POC Creatinine 1.3 POC Glucose 117 H Departure - Departure Disposition: [facility] Inpatient Acute Clinical Impression: Syncope Qualifiers: Syncope type: unspecified Qualified Code(s): R55 - Syncope and collapse Altered mental status, unspecified Qualifiers: Altered mental status type: transient alteration of awareness Qualified Code(s) : R40.4 - Transient alteration of awareness Condition: Fair
--- NOTE | 2016-10-05 11:00 | CPEKG ---
Heart Rate: 69 RR Interval: 870 P-R Interval: 184 QRSD Interval: 92 QT Interval: 424 QTC Interval: 455 P [place]: 69 QRS [place]: 60 T Wave [place]: -53 EKG Severity - ABNORMAL ECG - EKG Impression: SINUS RHYTHM EKG Impression: NONSPECIFIC T ABNORMALITIES, INFERIOR LEADS Electronically Signed By: Tahir Jules 05-Oct-2016 12:38:08
[2016-10-05 11:07] LABS: % IMMATURE GRANULYOCYTES 0.5 % (0.0-1.1); ABSOLUTE IMMATURE GRANULOCYTES 0.03 10^3/uL (0.00-0.10); ADD DIFF? NO; ADD MORPH? NO; ADD SCAN? NO; ATYPICAL LYMPHOCYTE FLAG 0 (0-99); FRAGMENT RBC FLAG 0 (0-99); HEMATOCRIT 45.9 % (40.0-51.0); HEMOGLOBIN 15.7 g/dL (13.7-17.5); LEFT SHIFT FLG 0 (0-99); LIPEMIA HEMOLYSIS FLAG 90 (0-99); MEAN CELL HEMOGLOBIN 30.4 pg (27.9-34.1); MEAN CELL HEMOGLOBIN CONCENTR. 34.2 g/dL (32.4-36.7); PLATELET CLUMPS FLAG 10 (0-99); PLATELET COUNT 133 10^3/uL (150-400); RED BLOOD CELL COUNT 5.16 10^6/uL (4.40-6.38); RED CELL DISTRIBUTION WIDTH 15.4 % (11.5-15.2)
[2016-10-05 11:21] LABS: ANION GAP 10 mEq/L (8-16); CALCIUM 9.3 mg/dL (8.5-10.4); CARBON DIOXIDE 25 mEq/l (22-31); CHLORIDE 98 mEq/L (97-110); CREATININE 1.2 mg/dL (0.7-1.3); GLOMERULAR FILTRATION RATE 58; GLUCOSE 114 mg/dL (70-100); POTASSIUM 4.4 mEq/L (3.5-5.2); SODIUM 133 mEq/L (134-144)
[2016-10-05 11:33] LABS: TROPONIN I < 0.012 ng/mL (0-0.034)
[2016-10-05] MEDS ORDERED: IOPAMIDOL (ISOVUE 370) 100 ML BTL IV ONE (11:59)
[2016-10-05] MEDS ORDERED: ONDANSETRON 4 MG/2 ML VIAL IVP PRN (13:29)
[2016-10-05] MEDS ORDERED: ACETAMINOPHEN 325 MG TAB PO PRN (13:29)
[2016-10-05] MEDS ORDERED: NS 1,000 ML IV SCH (13:30)
--- NOTE | 2016-10-05 14:46 | GCON ---
[f rep st] CONSULTATION NEUROLOGIC CONSULTATION. The patient is an 81-year-old gentleman, whom I know from outpatient monitoring in the office, but kendal rosales is here in the emergency department because of acute decreased responsiveness that occurred around 10:15 this morning, or so. He had gotten up and gone to breakfast, and then acutely became unrespo nsive, and has subsequently come to the hospital with decreased level of awareness and nonverbal, bu t withdrawing initially to pain in the extremities. He was seen by me about 45 minutes ago, and at that point when I rubbed on his chest he probably woke up and was able to interact to a variable deg ree and following commands, and seemed to recognize me as well as some of his family members. He brito s had acute imaging with head CT. That study does not show any hemorrhage or specific evidence of a cute stroke. He just has prominent cerebral atrophy. The CT angiogram of the neck, read by Dr. Kalen Mascorro, shows some plaquing in the right vertebral artery with a stenosis of 70% to 75%, but the rest of the vertebral basilar system looks relatively unremarkable. The internal carotid arteries did not show any severe stenosis. However, at the origin of the right middle cerebral artery there is a high-grade stenosis without evidence of associated plaque. There is probably some decreased fl ow in that vessel, based on the characteristics of the findings comparing the 2 sides. The patient has a history of Alzheimer disease, for which I have followed him in the office. He was last seen in the office on August 28. He had some decline. He had hospitalization with pneumo jenn and encephalopathy on top of his cognitive impairment. Memory was decreasing. He was oriented to the city at that time but did not know the month or the year. His concentration and attention ar e reduced and that is his baseline. He is rather hard of hearing and sometimes very slow to answer questions, but his baseline can communicate and generally follow commands. ADDITIONAL PAST MEDICAL HISTORY: Notable for osteoarthritis, type 2 diabetes, osteopenia, erectile dysfunction, prostate cancer, hypertension, coronary artery disease with history of bypass, pituitar y adenoma. MEDICATIONS: Aspirin, Aricept, levothyroxine, metoprolol, Plavix, sodium chloride, Celebrex, Lantus , PreserVision, B12. SOCIAL HISTORY: He is not a smoker or drinker. ALLERGIES: Benzodiazepines, Halcion, oxybutynin, oxycodone, temazepam, triazolam. PHYSICAL EXAM: VITAL SIGNS: Blood pressure 192/94, pulse of 59, respirations 16, temperature 36.9. GENERAL: He is well developed, lying in the bed. NEUROLOGIC: Initially poorly responsive, but when I rubbed his sternum he became alert quickly, alt dharmesh this did not sustain. He had variable degrees of interacting with me, but could follow comman ds in all the extremities. Squeeze my fingers. Mostly he would close his eyes, and he would either resist my attempts to have him open his eyes, or only open them intermittently. He seemed to recog nize some family members, but then sometimes would not speak very much. He has subsequently improve d since he initially came in the emergency department, which is what I was finding on my exam compar ed to a few hours before that. In any case, reflexes 1+. Sensation seems to be preserved for at le ast a withdrawal to painful stimuli. IMAGING FINDINGS: As outlined above. Sinus rhythm on EKG. LABORATORY STUDIES: So far show unremarkable CBC and electrolytes. IMPRESSION: The patient has had an episode of acute decreased responsiveness. There is stenosis of the right vertebral artery, which is the nondominant vessel, but his basilar artery looks good. He has a severe stenosis of the right middle cerebral artery in the proximal level of uncertain cause, and whether this is actually contributing to the symptoms he has now is a little hard to say. You would not expect a hemispheric stenosis to create this degree of unresponsiveness, and he does not h ave any evidence of a left hemiparesis. Therefore, I am not entirely clear why he has had this williamson ge, which may be metabolic in nature. He has an underlying degree of dementia, which is moderate in severity. For now, he will be monitored and allowed to have some passive hypertension as we sort t hrough this. We will continue to monitor his neurologic status. I would not recommend acute interv ention such as sending him for a catheter-based procedure on that right M1 artery. We will see how he does. There is not a clear-cut indication for anticoagulation, but that would be our only option if we think he is deteriorating related to cerebral blood flow. He is not a candidate for tPA, bas ed on the fact that it is not clear what triggered this, and he is getting closer back to his kinjal yin, and does not have focal findings on the exam. The NIH stroke scale is 3 based on his responsive ness and answering of questions. TOTAL TIME ON THE UNIT: 55 minutes. /[id number]/MODL
[2016-10-05] MEDS ORDERED: BISACODYL 10 MG SUPP PR PRN (16:01)
[2016-10-05] MEDS ORDERED: LABETALOL HCL 5 MG/ML 20 ML MDV IVP PRN (17:33)
--- NOTE | 2016-10-05 17:42 | PDGENHP ---
History and Physical History and Physical: HISTORY AND PHYSICAL CC: Sudden change in mentation HISTORY: This patient was having lunch at [facility] today with his and other residents, when he suddenly felt poorly and mentioned this to the nurse who was there. She thought he felt clammy. He then suddenly lost consciousness for approximately 10 seconds slumping to his side. Following this he woke up and began vomiting repeatedly. He was transported to the emergency room. Upon arrival to the emergency room he had significantly decreased alertness and somnolence. From what I understand he was given and nausea medicine that might cause somnolence in ambulance on route here but I do not know what that medicine was, what the dose was, or exactly what time it was given. I am also not able to determine with clarity with the patient's mentation was like between his 10 second loss of consciousness and his loading into the ambulance to come here. At this point the patient is arousable but still sleepy and between that his dementia is very difficult to get any kind of acute history from him nor any kind of review of systems. His daughter and son are here with me now and they see him often. They say that he has been doing quite well recently in fact over the last couple of days was stating he was feeling good and was eating normally. Called his daughter a couple of days ago on the phone. His baseline is that he does have some significant memory deficit he walks with a walker, requires minor assistance with dressing and bathing, gets himself to and from the dining room feeds himself. Family is unaware of any previous history of actual syncope but he was evaluated here couple years ago for an episode of what was called near- syncope. There were no concerning cardiac symptoms found at that time. He does however have a history of coronary disease with bypass surgery and 8 stents placed. He normal stress test 2012. He has chronic ST elevation on his EKGs. He also has a history of diabetes. It is unclear to me whether his blood sugar was checked at the nursing facility today but his blood sugars were in good range as he arrived here. There is no history that I was able to obtain that he was treated for hypoglycemia in any particular way Per his daughter the only recent medical change was addition of Aricept a few weeks ago. He did have a decrease in his thyroid dose a few months ago when he had an low TSH. It is unclear to me whether he had a repeat TSH are not. Review of his previous hospital records here shows that in February 2016 he had an undetectable TSH ROS: A comprehensive 10 system review revealed no other significant findings PAST MEDICAL HISTORY: Coronary artery disease with bypass surgery followed by 8 stents Near-syncope Chronic ST elevation on EKG Diabetes mellitus type 2 Hypothyroidism Hypertension Hyperlipidemia Low back pain Dementia Pituitary tumor removed surgically BPH status post TURP Appendectomy Lumbar spine surgery FAMILY MEDICAL HISTORY: His children are unaware of any significant or concerning family medical history SOCIAL HISTORY: He lives with his at [facility] they are both in the memory care unit there. He walks with a walker. No tobacco or alcohol. He has a most form that accompanies him here and does indicate that he wishes primarily comfort care and does wish DNR. His family confirms that. MEDICATIONS: The patients list has been reconciled by our clinical pharmacist in the EMR. I have reviewed the list and ordered appropriate medicines. PHYSICAL EXAMINATION: Vital Signs: Some hypertension otherwise normal Co Op: Sinus rhythm Examination: General: Since sleeping but arousable and answers a couple of brief questions then falls quickly back to sleep. I can find no evidence of focal neurologic abnormalities though he is somnolent enough that the examination is impeded Skin: warm, dry, good color, no rash HEENT: normal Neck: no mass or jvd Resps: relaxed Lungs: clear breath sounds Heart: regular, no murmur Abdomen: soft, nondistended, nontender, +BS, no mass Upper Extremities: normal Lower Extremities: no edema, warm No Bleeding or bruising Neurologic: normal speech/language, normal stress test technician, no focal weakness IV site: looks normal LABORATORY DATA: Unremarkable basic met panel and CBC RADIOLOGY STUDIES: CT scan of brain without contrast shows no acute abnormalities, some atrophy, and I have reviewed these images myself and agree with radiology reading CT angiogram of the head and neck shows some high-grade stenosis of M1 proximally on the right. Chest x-ray unremarkable on my review of the image EKG on my review of tracing shows sinus rhythm nothing ischemic ASSESSMENT: -Acute syncopal episode today preceded by a sense of feeling poorly and with the nurse noting that he was diaphoretic. This was followed by several episodes of vomiting which has now stopped. 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 Certainly could have been a vagal episode or it could have been arrhythmia or other cause. We will need to watch carefully here for any signs of arrhythmia or other cardiac abnormalities. He has been having no recent cardiac symptoms otherwise. The reason for his current somnolence after this episode is also unclear. It is possible that it is due to the anti nausea medication given to him and on route to the hospital. Is possible that he aspirated and this caused somnolence somehow, or that would ever caused him to have nausea and syncope is also causing him to be somnolent. However he was wide awake prior to this that seems fairly unlikely. I do not at this time see any evidence of aspiration or other infection. I do not see anything focal that looks like a stroke. I do not think that this episode is caused by his cerebral artery stenosis, however I would agree with Dr. Hinds that at this point we should be careful about lowering his blood pressure with the potential to cause right middle cerebral artery ischemia if we lower it too quickly or too far. I also agree that there is no indication at this time to consider thrombolysis or anticoagulation. Changes in his clinical course could change these ideas. PLANS: - observation on media monitor here - allow permissive hypertension but will treat severe hypertension at this time - avoid sedating medicines - at this time he is not alert enough to swallow safely so will keep him NPO until awake enough to evaluate his swallowing - DVT prophylaxis - Fall risk precautions - other interventions as indicated by his clinical course I have reviewed the patient's case in detail with Dr. Tahir Linares I have reviewed the patient's past medical records as part of this assessment, including records from previous hospital admissions here
[2016-10-05] MEDS: CALCIUM CARB W/VIT D 500 MG TAB PO SCH (20:12)
[2016-10-05] MEDS: METOPROLOL TARTRATE 25 MG TAB PO SCH (20:13)
[2016-10-05] MEDS: SENNOSIDES/DOCUSATE SODIUM TAB PO SCH (20:13)
[2016-10-05] MEDS ORDERED: CLOPIDOGREL BISULFATE 75 MG TAB PO SCH (21:00)
[2016-10-05] MEDS ORDERED: DONEPEZIL HCL 5 MG TAB PO SCH (21:00)
[2016-10-05] MEDS ORDERED: INSULIN GLARGINE 100 UNITS/ML SYRINGE SC SCH (21:00)
[2016-10-05] MEDS ORDERED: ATORVASTATIN CALCIUM 40 MG TAB PO SCH (21:00)
[2016-10-05] MEDS ORDERED: SOMATROPIN SQ SCH (21:00)
[2016-10-05] MEDS: DESITIN MAX STRENGTH OINTMENT TP SCH (21:47)
[2016-10-05] MEDS: [UNRECOGNIZED DRUG - OTHER] TP SCH (21:48)
[2016-10-06 03:40] LABS: % IMMATURE GRANULYOCYTES 0.3 % (0.0-1.1); ABSOLUTE IMMATURE GRANULOCYTES 0.02 10^3/uL (0.00-0.10); ADD DIFF? NO; ADD MORPH? NO; ADD SCAN? NO; ATYPICAL LYMPHOCYTE FLAG 20 (0-99); FRAGMENT RBC FLAG 0 (0-99); HEMATOCRIT 43.1 % (40.0-51.0); HEMOGLOBIN 14.9 g/dL (13.7-17.5); LEFT SHIFT FLG 0 (0-99); LIPEMIA HEMOLYSIS FLAG 90 (0-99); MEAN CELL HEMOGLOBIN 31.1 pg (27.9-34.1); MEAN CELL HEMOGLOBIN CONCENTR. 34.6 g/dL (32.4-36.7); MEAN PLATELET VOLUME 11.3 fL (8.7-11.7); PLATELET CLUMPS FLAG 0 (0-99); PLATELET COUNT 127 10^3/uL (150-400); RED BLOOD CELL COUNT 4.79 10^6/uL (4.40-6.38); RED CELL DISTRIBUTION WIDTH 15.5 % (11.5-15.2)
[2016-10-06 04:17] LABS: ANION GAP 7 mEq/L (8-16); CALCIUM 9.1 mg/dL (8.5-10.4); CARBON DIOXIDE 26 mEq/l (22-31); CHLORIDE 100 mEq/L (97-110); GLOMERULAR FILTRATION RATE > 60; GLUCOSE 121 mg/dL (70-100); POTASSIUM 4.3 mEq/L (3.5-5.2); SODIUM 133 mEq/L (134-144)
[2016-10-06] MEDS ORDERED: LEVOTHYROXINE 112 MCG TAB PO SCH (06:00)
[2016-10-06] MEDS: SENNOSIDES/DOCUSATE SODIUM TAB PO SCH (08:00)
[2016-10-06] MEDS: CALCIUM CARB W/VIT D 500 MG TAB PO SCH (08:00)
[2016-10-06] MEDS: METOPROLOL TARTRATE 25 MG TAB PO SCH (08:01)
[2016-10-06] MEDS: [UNRECOGNIZED DRUG - OTHER] TP SCH (08:02)
[2016-10-06] MEDS: DESITIN MAX STRENGTH OINTMENT TP SCH (08:02)
[2016-10-06] MEDS ORDERED: ENOXAPARIN 40 MG/0.4 ML SYR SC SCH (09:00)
[2016-10-06] MEDS ORDERED: ASPIRIN EC 325 MG TAB PO SCH (09:00)
[2016-10-06] MEDS ORDERED: MULTIVITAMINS 1 EACH TAB PO SCH (09:00)
[2016-10-06] MEDS ORDERED: SODIUM CHLORIDE 1,000 MG TAB PO SCH (09:00)
[2016-10-06] MEDS ORDERED: CYANO/VITAMIN B12 1000 MCG TAB PO SCH (09:00)
[2016-10-06] MEDS ORDERED: PANTOPRAZOLE SODIUM 40 MG TAB PO SCH (09:00)
[2016-10-06] MEDS ORDERED: PRESERVISION AREDS2 FORMULA EYE VIT 1 EACH PO SCH (09:00)
[2016-10-06] MEDS ORDERED: GLUCOSAMINE SULF 500 MG CAP PO SCH (09:00)
--- NOTE | 2016-10-06 09:30 | NEUROPROG ---
Assessment: At this point, the patient is close to his cognitive baseline. It is not entirely clear why he had this episode of acute unresponsiveness yesterday. I do not believe he had a stroke. The overall presentation does not seem very consistent with a TIA, we have not identified any specific arrhythmias or other distinct causes. A vagal phenomenon may have occurred. 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 He is on dual anti-platelet therapy already. At this point, he should be able to be discharged once he is fully medically cleared and if he is safe from a physical and occupational therapy standpoint with modifications to be added as needed to keep him safe outside of the hospital. He will continue his regular follow up with me as an outpatient. Total unit time of 30 minutes. Subjective: The patient who is not reporting any specific complaints today. He is rather oblivious to what has occurred in the last 24 hours. He denies having any pain. He denies focal numbness or feelings of weakness. Objective: Vital Signs Temp Pulse Resp BP Pulse Ox 36.7 C 74 16 138/99 H 92 10/06/16 07:25 10/06/16 07:25 10/06/16 07:25 10/06/16 07:25 10/06/16 07:25 Laboratory Results 10/06/16 03:06 10/06/16 03:06 10/05/16 10/06/16 10/07/16 05:59 05:59 05:59 Intake Total 563 Output Total 450 Balance 113 He seems to be about back to his baseline cognitively. He can answer basic questions and a superficial level but is only oriented to the city. This is not unusual for him. He cannot name the president of [employer]. He tracks my fingers and is much more lower than yesterday in the emergency room. There is some mild, generalized weakness, but there is not any focal weakness. Allergies/Adverse Reactions: triazolam [From Halcion] Allergy (Severe, Verified 07/11/16 10:12) Anxiety
[2016-10-06 10:57] VITALS: BP 137/52; PULSE 67; RESP 19; TEMP 97.7; O2SAT 90
--- NOTE | 2016-10-06 12:18 | PDIAF ---
- Diagnosis Diagnosis: syncope, nausea vomiting, sedation from phenergan, gait instability Code Status: Do Not Resuscitate - Medication Management Discharge Medications: Medications to Continue on Transfer Clopidogrel Bisulfate [Plavix (*)] 75 mg PO HS 11/27/15 [Last Taken 10/04/16 21: 00] Glucosamine Sulfate [Glucosamine Sulfate 500 MG (*)] 500 mg PO DAILY 11/27/15 [ Last Taken 10/05/16 08:00] Metoprolol Tartrate [Lopressor 25 mg (*)] 25 mg PO BID 11/27/15 [Last Taken 08:00] Pantoprazole Sodium [Protonix 40mg (*)] 40 mg PO DAILY 11/27/15 [Last Taken 08:00] Insulin Glargine,Hum.rec.anlog [Lantus Solostar] 12 unit SQ HS 12/18/15 [Last Taken 10/04/16 20:00] Aspirin EC [Aspirin EC 325 mg (*)] 325 mg PO DAILY #0 tab 12/19/15 [Last Taken 10/05/16 08:00] Acetaminophen [Tylenol 325mg (*)] 650 mg PO TID 07/11/16 [Last Taken 10/05/16 08 :00] Bisacodyl [Dulcolax] 10 mg RC Q4D PRN 07/11/16 [Last Taken Unknown] C/E/Zn/Cu/OM3/DHA/EPA/LUT/ZEAX [Preservision Areds 2 Softgel] 2 cap PO DAILY [Last Taken 10/05/16 08:00] Calcium Carb W/Vit D [Calcium Carb W/Vit D 500/200 (*)] 500 mg PO BID 07/11/16 [ Last Taken 10/05/16 08:00] Levothyroxine [Synthroid 112 mcg (*)] 112 mcg PO DAILY06 07/11/16 [Last Taken 06:00] Multivitamins [Multivitamin (*)] 1 tab PO DAILY 07/11/16 [Last Taken 10/05/16 08 :00] Sennosides/Docusate Sodium [Senokot-S] 1 tab PO BID 07/11/16 [Last Taken 08:00] celeCOXIB [Celebrex (*)] 200 mg PO DAILY 07/11/16 [Last Taken 10/05/16 08:00] Cyanocobalamin [Vitamin B12 (*)] 1,000 mcg PO DAILY 10/05/16 [Last Taken 08:00] Donepezil HCl [Aricept 5 MG (*)] 5 mg PO HS 10/05/16 [Last Taken 10/04/16 21:00] Sodium Chloride [Salt Tablet] 1 gm PO DAILY 10/05/16 [Last Taken 10/05/16 08:00] Somatropin [Genotropin] 0.4 mg SQ HS 10/05/16 [Last Taken 10/04/16 21:00] Talc/Cellulos/Chloroxy/Aldioxa [Zeasorb Powder] 1 bradley TP BID 10/05/16 [Last Taken 10/05/16 08:00] Zinc Oxide [Desitin] 1 bradley TP BID 10/05/16 [Last Taken 10/04/16 08:00] Atorvastatin Calcium [Lipitor 40 mg (*)] 40 mg PO HS #0 tab 10/06/16 [Last Taken Unknown] Discharge Medications: Refer to the Discharge Home Medication list for PRN reason. - Orders Services needed: Registered Nurse, Certified International Account Manager, Physical Therapy, Occupational Therapy Diet Recommendation: no restrictions on diet Diet Texture: Regular Texture Diet - Follow Up Care Current Providers and Referrals: Patient,NotPresent [Unknown] - As per Instructions
--- NOTE | 2016-10-06 12:23 | PDDCSUM ---
Discharge Summary Discharge Summary: DISCHARGE DIAGNOSES: -acute syncope with no evidence of cardiac etiology identified -nausea and vomiting, resolved, suspected due to syncopal event -sedation, suspected due to Phenergan administered by paramedics -gait instability -Chronic dementia -incidental finding on CT angiogram of stenosis of the proximal M1 branch of right middle cerebral artery CONSULTANTS: Dr. Hernan Hinds PROCEDURES: CT scan of head HOSPITAL COURSE SUMMARY: This patient had been eating lunch when he had a sudden syncopal event preceded by feeling lightheaded and with diaphoresis. Following this brief syncope of several seconds the patient had nausea and vomiting. He was seen by paramedics who administered Phenergan. He had no evidence of hypoglycemia. Was transported to the emergency room and was quite obtunded on arrival to the hospital. This was felt to be due to the Phenergan that he received it did improve over the time course of the Phenergan wearing off. There are no focal neurologic deficits at any time. Patient had no heart failure, angina, or other cardiac symptoms per se otherwise and had normal troponin and nonischemic EKG. There is no arrhythmia noted on cardiac monitoring here. By today the patient is feeling quite well is wide awake eating well ambulating well in the hallway. His examination is unremarkable regarding vital signs, neurologic examination, pulses, cardiopulmonary. On CT angiogram of the head and neck the patient had a proximal stenosis of the M1 branch of the right middle cerebral artery. As he did not have any focal neurologic symptoms this was felt to be a incidental asymptomatic radiologic finding. On review with Dr. Hinds his recommendation is that we not pursue an intervention for that but he should continue on platelet inhibition and cholesterol therapy, with good blood pressure control. He is chronically on statin therapy along with aspirin and Plavix and blood pressure medication. MEDICATION CHANGES: None FOLLOW-UP PLAN: He is to return to [facility] today and we will add physical occupational therapy. Will follow up with his primary care physician there [facility]. Greater than 35 minutes bedside and care coordination time today
[2016-10-06] MEDS ORDERED: PNEUMOC 13-VAL CONJ-DIP CRM/PF 0.5 ML SYR IM ONE (13:55)
== END 2016-10-06 14:37 | disposition home health service (06) ==
LOC: EDUNIT# → F2W 15:29
PROVIDERS: ADMIT Internal Medicine; ATTEND Internal Medicine
DX: R55 Syncope and collapse (principal); R11.2 Nausea with vomiting, unspecified; R26.9 Unspecified abnormalities of gait and mobility; G30.9 Alzheimer's disease, unspecified; T42.6X5A Adverse effect of other antiepileptic and sedative-hypnotic drugs, initial encounter; I66.01 Occlusion and stenosis of right middle cerebral artery; I10 Essential (primary) hypertension; E78.5 Hyperlipidemia, unspecified; I25.10 Atherosclerotic heart disease of native coronary artery without angina pectoris; E11.9 Type 2 diabetes mellitus without complications; E03.9 Hypothyroidism, unspecified; N40.0 Benign prostatic hyperplasia without lower urinary tract symptoms; Z85.46 Personal history of malignant neoplasm of prostate; Z87.891 Personal history of nicotine dependence; Z95.5 Presence of coronary angioplasty implant and graft; Z96.642 Presence of left artificial hip joint; Z95.1 Presence of aortocoronary bypass graft; Z79.02 Long term (current) use of antithrombotics/antiplatelets; Z79.82 Long term (current) use of aspirin; Z66 Do not resuscitate; Z23 Encounter for immunization
CPT/HCPCS: 70450; 70496; 70498; 71010; 90670; 93005; 97161; 97165; 99285; G0009; G0378; G8978; G8979; G8987; G8988; G8989; J1650; J1815; J3490; Q9967; 82947-QW

== ENCOUNTER 2016-12-24 15:40 | Observation (INO) | payer OTHER ==
[2016-12-24] MEDS ORDERED: ONDANSETRON 4 MG/2 ML VIAL IVP PRN (16:25)
[2016-12-24] MEDS ORDERED: ACETAMINOPHEN 325 MG TAB PO PRN (16:25)
[2016-12-24] MEDS ORDERED: ONDANSETRON DISINTEGRATING 4 MG TAB PO PRN (16:25)
[2016-12-24 17:11] LABS: % IMMATURE GRANULYOCYTES 0.7 % (0.0-1.1); ABSOLUTE IMMATURE GRANULOCYTES 0.04 10^3/uL (0.00-0.10); ADD DIFF? NO; ADD MORPH? NO; ADD SCAN? NO; ATYPICAL LYMPHOCYTE FLAG 0 (0-99); FRAGMENT RBC FLAG 0 (0-99); HEMATOCRIT 45.9 % (40.0-51.0); HEMOGLOBIN 15.9 g/dL (13.7-17.5); LEFT SHIFT FLG 0 (0-99); LIPEMIA HEMOLYSIS FLAG 90 (0-99); MEAN CELL HEMOGLOBIN 31.8 pg (27.9-34.1); MEAN CELL HEMOGLOBIN CONCENTR. 34.6 g/dL (32.4-36.7); MEAN CELL VOLUME 91.8 fL (81.5-99.8); MEAN PLATELET VOLUME 11.4 fL (8.7-11.7); PLATELET CLUMPS FLAG 0 (0-99); PLATELET COUNT 178 10^3/uL (150-400); RED CELL DISTRIBUTION WIDTH 13.1 % (11.5-15.2)
[2016-12-24] MEDS ORDERED: [UNRECOGNIZED DRUG - OTHER] TP PRN (17:13)
[2016-12-24] MEDS ORDERED: BISACODYL 10 MG SUPP PR PRN (17:13)
[2016-12-24] MEDS ORDERED: D50W 25 GM/50 ML SYR IVP PRN (17:19)
[2016-12-24 17:29] LABS: ALANINE AMINOTRANSFERASE 29 IU/L (21-72); ALBUMIN 3.7 g/dL (3.5-5.0); ALKALINE PHOSPHATASE 45 IU/L (38-126); ANION GAP 8 mEq/L (8-16); ASPARTATE AMINOTRANSFERASE 22 IU/L (17-59); BILIRUBIN,TOTAL 0.7 mg/dL (0.1-1.4); CALCIUM 9.9 mg/dL (8.5-10.4); CARBON DIOXIDE 24 mEq/l (22-31); CHLORIDE 94 mEq/L (97-110); CREATININE 1.2 mg/dL (0.7-1.3); GLOMERULAR FILTRATION RATE 58; GLUCOSE 106 mg/dL (70-100); MAGNESIUM 1.8 mg/dL (1.6-2.3); POTASSIUM 4.6 mEq/L (3.5-5.2); SODIUM 126 mEq/L (134-144); TOTAL PROTEIN 6.6 g/dL (6.3-8.2)
[2016-12-24 17:35] LABS: INR 1.21 (0.83-1.16); PROTIME(PATIENT) 15.3 SEC (12.0-15.0)
[2016-12-24] MEDS ORDERED: INSULIN GLARGINE HUM REC ANLOG 12 UNIT SQ SCH (18:00)
[2016-12-24] MEDS ORDERED: SOMATROPIN SQ SCH (18:00)
--- NOTE | 2016-12-24 18:05 | PDCARPN ---
Cardiology Progress Note Chief Complaint: ongoing fatigue. Assessment/Plan: Assessment: Please see Dr. Sanchez office note, to be used as H&P. 81-year-old male with significant history of CAD, previous CABG, multiple PCIs, type 2 diabetes, hypertension, history of pituitary adenoma, prostate neoplasm and early-onset Alzheimer's. History of syncope in September of this year unclear etiology. Seen in office today, noted to be more lethargic, noted to have irregular pulse, at 35 BPM. EKG done in office showed sinus rhythm with bigeminal premature ventricular contractions, inverted T-waves in inferior leads. Direct admit to hospital for laboratory studies, and continuous cardiac monitoring. Patient denies of any chest pressure or pain. Reports no shortness of breath. most recent echocardiogram done in office on 01/17/2017 showed LV normal size and thickness, EF 55-60%, normal LA, RA, RV chamber size. aneurysmal intra-atrial septum. Diastolic dysfunction. Trace AI, trace MR. her most recent MPI study done on 01/31/2013 showing moderate size, moderate intensity fixed deficit involving basal inferior bianchi consistent with infarct. LV systolic function was moderately reduced with EF at 40%, segmental wall motion abnormalities. Plan: PVCs: Patient with known history of CAD, noted to have bigeminy PVCs on EKG in office. Placed on continuous cardiac monitoring. will check electrolyte and renal function. Per family request, no significant workup for myocardia ischemia will be done. Will not order troponin level Per family and Dr. Sanchez request. continue on home dose beta-frankie. Echocardiogram to be done in a.m.. CAD: Patient denies of any chest pain or pressure. Continue on current dose of aspirin and clopidogrel. continue beta-frankie. No extensive cardiac workup per family's request. Medication management. Diabetes type 2: Resume home insulin dose. Blood sugars a.c. and HS. Hypertension: Blood pressure appears well controlled on current medication regime. Continue home dosage. Hyperthyroidism: will check TSH, continue home dose Synthroid. Fatigue: Will get chest a x-ray to evaluate for possible pneumonia. CBC, CMP , and UA. Alzheimer disease: per daughter, mentally at his baseline. Hyperlipidemia: Continue statin therapy. DVT prophylaxis: Ashok hose and Lovenox. Code status: per patient's daughter, DNR. 12/24/16 17:57 Subjective: Patient denies of any chest pain, shortness of breath, palpitations, lightheadedness. Reports ongoing fatigue symptoms. Reviewed/Discussed With: family ( Patient's daughter and ), other (Dr Sanchez and Dr Perez) Objective: Vital Signs (8 Hrs) Temp Pulse Resp BP Pulse Ox 12/24/16 16:40 36.4 C 71 20 180/100 H 95 Intake/Output (24 Hrs) 12/23/16 12/24/16 12/25/16 05:59 05:59 05:59 Other: Weight 86.682 kg Result Diagrams: 12/24/16 16:40 12/24/16 16:40 - Physical Exam Constitutional: other ( Elderly male, mildly lethargic, answer questions appropriately. Wheelchair dependent.) Ears, Nose, Mouth, Throat: moist mucous membranes Cardiovascular: systolic murmur ( 1 to 2/6 along left sternal border), irregularly irregular ( Sinus rhythm with PVCs.), jugular vein distention ( 45 cm above sternal notch), pulses symmetric bilat, No carotid bruit Peripheral Pulses: 1+: dorsalis-pedis (R), dorsalis-pedis (L), 2+: carotid (R), carotid (L) Respiratory: other ( clear but diminished in bases bilateral, no rhonchi, rales , or wheezing noted.) Gastrointestinal: normoactive bowel sounds Skin: warm, no edema Neurologic: AAOx3 Psychiatric: cooperative, interactive, following commands ICD10 Worksheet Patient Problems: Problems Problem Status Onset Primary localized osteoarthritis of left hip Acute Influenza A Acute Syncope Acute Altered mental status, unspecified Acute
[2016-12-24] MEDS: SOMATROPIN SQ SCH (19:16)
[2016-12-24] MEDS: INSULIN GLARGINE 100 UNITS/ML SYRINGE SC SCH (19:20)
[2016-12-24] MEDS: SODIUM CHLORIDE 1,000 MG TAB PO SCH (20:41)
[2016-12-24] MEDS: CALCIUM CARB W/VIT D 500 MG TAB PO SCH (20:41)
[2016-12-24] MEDS ORDERED: METOPROLOL TARTRATE 25 MG TAB PO SCH (21:00)
[2016-12-24] MEDS: SENNOSIDES/DOCUSATE SODIUM TAB PO SCH (23:43)
[2016-12-25 04:18] LABS: COLOR YELLOW; LEUKOCYTE ESTERASE,URINE NEGATIVE (NEGATIVE); NITRITE,URINE NEGATIVE (NEGATIVE)
[2016-12-25 04:49] LABS: ANION GAP 12 mEq/L (8-16); CALCIUM 9.5 mg/dL (8.5-10.4); CARBON DIOXIDE 20 mEq/l (22-31); CHLORIDE 98 mEq/L (97-110); GLOMERULAR FILTRATION RATE > 60; GLUCOSE 117 mg/dL (70-100); POTASSIUM 4.6 mEq/L (3.5-5.2); SODIUM 130 mEq/L (134-144)
[2016-12-25] MEDS ORDERED: LEVOTHYROXINE 112 MCG TAB PO SCH (06:00)
--- NOTE | 2016-12-25 08:33 | CPEKG ---
Heart Rate: 75 RR Interval: 800 P-R Interval: 240 QRSD Interval: 100 QT Interval: 428 QTC Interval: 479 P [place]: 48 QRS [place]: 43 T Wave [place]: -42 EKG Severity - ABNORMAL ECG - EKG Impression: SINUS RHYTHM EKG Impression: VENTRICULAR BIGEMINY EKG Impression: FIRST DEGREE AV BLOCK EKG Impression: new intraventricular conduction delay EKG Impression: NONSPECIFIC T ABNORMALITIES, INFERIOR LEADS Electronically Signed By: Kevin Daniel 25-Dec-2016 16:54:24
[2016-12-25] MEDS ORDERED: NON-FORMULARY NEW DRUG (Meloxicam [Mobic 7.5 Mg] 7.5 MG) PO SCH (09:00)
[2016-12-25] MEDS ORDERED: VIT A PO SCH (09:00)
[2016-12-25] MEDS ORDERED: ZINC PO SCH (09:00)
[2016-12-25] MEDS ORDERED: METOPROLOL TARTRATE 50 MG TAB PO SCH (09:00)
[2016-12-25] MEDS ORDERED: VIT C PO SCH (09:00)
[2016-12-25] MEDS ORDERED: ASPIRIN EC 325 MG TAB PO SCH (09:00)
[2016-12-25] MEDS ORDERED: COPPER PO SCH (09:00)
[2016-12-25] MEDS ORDERED: VIT E PO SCH (09:00)
[2016-12-25] MEDS ORDERED: CLOPIDOGREL BISULFATE 75 MG TAB PO SCH (09:00)
[2016-12-25] MEDS ORDERED: PANTOPRAZOLE SODIUM 40 MG TAB PO SCH (09:00)
[2016-12-25] MEDS ORDERED: CYANO/VITAMIN B12 1000 MCG TAB PO SCH (09:00)
[2016-12-25] MEDS ORDERED: ENOXAPARIN 30 MG/0.3 ML SYR SC SCH (09:00)
[2016-12-25] MEDS ORDERED: PRESERVISION AREDS2 FORMULA EYE VIT 1 EACH PO SCH (09:00)
[2016-12-25] MEDS ORDERED: MELOXICAM 7.5 MG PO SCH (09:00)
[2016-12-25] MEDS ORDERED: MULTIVITAMINS 1 EACH TAB PO SCH (09:00)
[2016-12-25] MEDS ORDERED: ATORVASTATIN CALCIUM 40 MG TAB PO SCH (09:00)
[2016-12-25] MEDS ORDERED: [UNRECOGNIZED DRUG - OTHER] PO SCH (09:00)
[2016-12-25] MEDS: SOMATROPIN SQ SCH (09:04)
[2016-12-25] MEDS: SODIUM CHLORIDE 1,000 MG TAB PO SCH (09:21)
[2016-12-25] MEDS: CALCIUM CARB W/VIT D 500 MG TAB PO SCH (09:21)
[2016-12-25] MEDS: SENNOSIDES/DOCUSATE SODIUM TAB PO SCH (09:22)
[2016-12-25 11:36] VITALS: TEMP 98
[2016-12-25 16:01] VITALS: BP 147/76; PULSE 66; RESP 20; O2SAT 93
--- NOTE | 2016-12-25 16:40 | ECHO ---
[id number] + + [address] : : [place] [address] : : [phone] + Adult Echocardiographic Report + ----+ :Name: SHARITA NOLASCOalton Date: 12/25/2016 11:44 AM BP: 172/82 mmHg : : Hospital Admission Number: [id number] Location: 202: :: 1935 Gender: Male Height: 70 in : :Age: 81 yrs Race: WH Weight: 191 lb : :Reason For Study: freq PVC, CAD : : BSA: 2.0 meters2 : :History: freq PVC, CAD : + ----+ MMode/2D Measurements \T\ Calculations IVSd: 1.3 cm RVDd: 2.7 cm FS: 25.5 % Ao root diam: LVPWd: 1.2 cm LVIDd: 4.7 cm EDV(Teich): 3.7 cm LVIDs: 3.5 cm 102.8 ml ESV(Teich): 51.1 ml EF(Teich): 50.3 % LVLd ap4: 8.9 cm SV(MOD-sp4): EDV(MOD-sp4): 101.0 ml 196.0 ml LVLs ap4: 7.6 cm ESV(MOD-sp4): 95.0 ml EF(MOD-sp4): 51.5 % Normal Measurement Values: + + :LVIDd (3.5-5.7cm) IVSd (0.6-1.1cm) LVPWd (0.6-1.1cm) Aortic Root (2.0-3.7cm)Left Atrium (1.5-4.0cm): :LV Vol(d) (76-115ml) LV Vol(s) (29-48ml) Ejec Fraction (50-65%)PV Sahil (0.6- 1.2m/s) TV Sahil (0.4-1.0m/s) : :MV E Sahil (0.8-1.0m/s)MV A Sahil (0.3-1.0m/s)LVOT Sahil (0.7-1.2m/s) Asc Ao Sahil ( 0.9-1.8m/s) : + + Doppler Measurements \T\ Calculations MV E max sahil: Ao V2 max: AI max sahil: LV V1 max: 42.4 cm/sec 67.8 cm/sec 417.8 cm/sec 59.3 cm/sec MV A max sahil: Ao max PG: AI max P.8 mmHg LV V1 max P.4 cm/sec 1.8 mmHg AI dec slope: 1.4 mmHg MV E/A: 0.49 164.7 cm/sec2 AI P1/2t: 742.7 msec PA V2 max: TR max sahil: 57.6 cm/sec 171.6 cm/sec PA max PG: TR max P.3 mmHg 11.8 mmHg RAP systole: 5.0 mmHg RVSP(TR): 16.8 mmHg Left Ventricle The left ventricle is normal in size. There is moderate concentric left ventricular hypertrophy. Left ventricular systolic function is low normal. Ejection Fraction = 50-55%. Accurate estimate of the left ventricular ejection fraction and wall motion abnormalities is difficult due to dysschrony and frequent arrythmia. Right Ventricle The right ventricle is normal in size and function. Atria The left atrial size is normal. Right atrial size is normal. Mitral Valve The mitral valve leaflets appear thickened, but open well. There is no mitral valve stenosis. There is mild mitral regurgitation. Tricuspid Valve The tricuspid valve is normal in structure and function. There is no tricuspid stenosis. There is mild tricuspid regurgitation. Right ventricular systolic pressure is 17mmHg. Aortic Valve The aortic valve is trileaflet. There is no aortic stenosis. Two jets of aortic regurgitation, mild to moderate in severity. Pulmonic Valve The pulmonic valve is not well visualized. Great Vessels The aortic root is normal size. Pericardium/Pleural There is no pericardial effusion. Conclusion A two-dimensional transthoracic echocardiogram with M-mode and Doppler was performed. Left ventricular systolic function is low normal. Accurate estimate of the left ventricular ejection fraction and wall motion abnormalities is difficult due to dysschrony and frequent arrythmia. Ejection Fraction = 50-55%. There is moderate concentric left ventricular hypertrophy. There is mild mitral regurgitation. There is mild tricuspid regurgitation. Right ventricular systolic pressure is 17mmHg. Two jets of aortic regurgitation, mild to moderate in severity. Overall similar to 11/02/2014 Final Reading Physician: Dr Rola Perez electronically signed on 12/25/2016 04:39 PM Ordering Physician: Flex Muir Performed By: Rachel Dyson
--- NOTE | 2016-12-25 16:59 | PDIAF ---
- Diagnosis Code Status: Do Not Resuscitate - Medication Management Discharge Medications: Medications to Continue on Transfer Acetaminophen [Tylenol 325mg (*)] 650 mg PO TID PRN 12/24/16 [Last Taken Unknown ] Aspirin EC [Aspirin EC 325 mg (*)] 325 mg PO DAILY 12/24/16 [Last Taken Unknown] Atorvastatin Calcium [Lipitor 40 mg (*)] 40 mg PO DAILY 12/24/16 [Last Taken Unknown] Bisacodyl [Dulcolax] 10 mg RC Q96H PRN 12/24/16 [Last Taken Unknown] Calcium Carb W/Vit D [Calcium Carb W/Vit D 500/200 (*)] 500 mg PO BID 12/24/16 [ Last Taken Unknown] Clopidogrel Bisulfate [Plavix (*)] 75 mg PO DAILY 12/24/16 [Last Taken Unknown] Cyanocobalamin [Vitamin B12 (*)] 1,000 mcg PO DAILY 12/24/16 [Last Taken Unknown ] Herbals/Supplements -Info Only 1 ea PO DAILY 12/24/16 [Last Taken Unknown] Insulin Glargine,Hum.rec.anlog [Lantus Solostar] 12 unit SQ DAILY@18 12/24/16 [ Last Taken Unknown] Levothyroxine [Synthroid 112 mcg (*)] 112 mcg PO DAILY06 12/24/16 [Last Taken Unknown] Meloxicam [Mobic 7.5 mg] 7.5 mg PO DAILY 12/24/16 [Last Taken Unknown] Multivitamins [Multivitamin (*)] 1 each PO DAILY 12/24/16 [Last Taken Unknown] Pantoprazole Sodium [Protonix 40mg (*)] 40 mg PO DAILY 12/24/16 [Last Taken Unknown] Sennosides/Docusate Sodium [Senna-S Tablet] 1 each PO BID 12/24/16 [Last Taken Unknown] Sodium Chloride [Salt Tablet] 1 gm PO DAILY 12/24/16 [Last Taken Unknown] Somatropin [Genotropin] 0.25 ml SQ DAILY@18 12/24/16 [Last Taken Unknown] Talc/Cellulos/Chloroxy/Aldioxa [Zeasorb Powder] 1 bradley TP BID PRN 12/24/16 [Last Taken Unknown] Vit A/Vit C/Vit E/Zinc/Copper [Preservision Areds Softgel] 2 each PO DAILY 12/24 [Last Taken Unknown] Metoprolol Tartrate [Lopressor 50 mg (*)] 50 mg PO BID #60 tab 12/25/16 [Last Taken Unknown] amLODIPine BESYLATE [Norvasc 2.5 mg (*)] 2.5 mg PO DAILY #30 tab 12/25/16 [Last Taken Unknown] Discharge Medications: Refer to the Discharge Home Medication list for PRN reason. - Orders Diet Recommendation: cardiac -low fat low salt, fluid restriction (use comment for amount) (1500 ml every day) - Labs/Radiology BMP Date: 12/29/16 - Follow Up Care Current Providers and Referrals: Berto Schmidt DO [Primary Care Provider] - follow up in 1 week Frank Sanchez MD [Medical Doctor] - (Follow up with Dr. Sanchez on January 11 at 2:15 pm)
[2016-12-25] MEDS: INSULIN GLARGINE 100 UNITS/ML SYRINGE SC SCH (17:44)
--- NOTE | 2016-12-25 21:02 | GDS ---
[f rep st] DISCHARGE SUMMARY ADMISSION DIAGNOSES: 1. Premature ventricular contractions, noted to be bigeminy occasional. 2. Ongoing fatigue. 3. History of coronary artery disease with previous bypass surgery and previous percutaneous sullivan ry intervention. 4. Diabetes, type 2. 5. Hypothyroidism. 6. Hypertension. 7. Hyperlipidemia. 8. Dementia. 9. History of pituitary adenoma with previous surgical removal. 10. Prostate neoplasty. DISCHARGE DIAGNOSES: 1. Premature ventricular contractions. 2. Hyponatremia. 3. Type 2 diabetes. 4. Hypothyroidism. 5. Hypertension. 6. Hyperlipidemia. 7. History of pituitary adenoma. 8. Prostate neoplasty. 9. Dementia. PROCEDURES DONE DURING HOSPITALIZATION: 1. Electrocardiogram. 2. Continuous cardiac monitoring. 3. Echocardiogram. 4. Chest x-ray. BRIEF HISTORY: Please see H and P. The patient is an 81-year-old male. He was seen in our office yesterday by Dr. Frank Sanchez, his primary tube pusher, with complaint of ongoing fatigue symptoms. He was noted initially to have a pulse of 40 beats per minute by palpation. A 12-lead electrocard iogram was done at that time, noting patient to be in sinus rhythm with bigeminal premature ventricu lar contractions. Patient reporting no history of chest pain or shortness of breath. It was discus sed with the patient's daughter, his medical power of environmental attorney, and it was decided that he would be admitted overnight for continuous cardiac monitoring to evaluate for possibility of any other malign ant arrhythmias or pauses. HOSPITAL COURSE: Patient was direct admitted to the PCU, where initial laboratory studies were draw n. It was noted that he was hyponatremic with sodium at 126. Normal white blood cell count, mildly elevated BNP at 694, and chloride was noted to be 94. Rest of his laboratory studies were unremarka ble. Chest x-ray done on admission showing no acute cardiopulmonary process. He was placed on cont inuous cardiac monitoring, where he was noted at times to continue to have bigeminy or frequent PVCs with occasional quadrigeminy also noted. No other malignant arrhythmias noted throughout his hospi talization. He was placed on fluid restriction of 1500 mL a day, and he was also started on his sung e sodium chloride tablets of 1 g daily. Repeated laboratory studies this morning shows sodium incre ased back to 130; it had been noted that his baseline through his multiple hospitalizations over the years was a sodium level between 131 to 133. Per his daughter, his mentation was at his baseline. Per patient's daughter's request, no significant cardiac workup was done, and no troponin levels we re drawn. Patient reporting no chest pain or pressure throughout his hospitalization. His home met oprolol dosage had been increased to 50 mg p.o. twice daily, with 1st dose given this morning. It w as also noted that he had significant episodes of hypertension with systolic blood pressure recorded as high as up to 183 mmHg. Amlodipine was also added to his medication regimen. By this afternoon , he is more alert. He answers questions appropriately and, per family is back to his normal baseli ne. He has had no chest pain or pressure, and with the additional dosage of metoprolol, noted to brito ve fewer premature ventricular contractions on continuous cardiac monitoring. It was decided that t he patient could be sent home and continue workup as outpatient, with plans of his undergoing a 2-we ek Holter monitoring, which will be scheduled and set up to be done early next week. It was also re commended that he continue being on fluid restriction with taking his normal sodium chloride tablets , and have repeated blood work done early next week. PHYSICAL EXAMINATION: (At current time.) CONSTITUTIONAL: AAO x2. Alert to person and place, but uncertain of time and situation; per family his baseline. GENERAL APPEARANCE: Mildly well groomed male. He appears to be in no acute distress. HEENT: Head is normocephalic. Lips and tongue are pink and moist with no signs of cyanosis. Conju nctivae pink. NECK: Trachea is midline +2 carotid pulses bilateral. No auscultated bruits. No jugular vein dist ention. RESPIRATORY: Lungs clear to auscultation. No rhonchi, rales or wheezes. No accessory muscles use. No intercostal muscle retraction noted. CARDIAC: Regular rate, regular rhythm. S1, S2. No S3, S4, gallops, rubs or murmur noted. ABDOMEN: Soft, nontender, bowel sounds x4 quadrants. No organomegaly. No palpable masses. SKIN: [place], warm, and dry. No cyanosis. No clubbing. No peripheral edema noted. VASCULAR: +2 carotids bilateral. +2 radials bilateral. +2 posterior tibial pulses bilateral. LABORATORY STUDIES: On admission last evening, WBC was 6.13, hemoglobin 15.9, hematocrit of 45.9, p latelet count of 178. INR was 1.21. Sodium 126, potassium 4.6, chloride 94, CO2 24, BUN 23, creati nine 1.2, glucose 106, calcium 9.9, magnesium 1.8, total bilirubin 0.7, AST 22, ALT 29, alkaline ___ 45, proBNP 694, total protein 6.6, albumin 3.3. TSH 0.917. This morning's basic metabolic panel showed sodium 130, potassium 4.6, chloride 98, CO2 20, BUN 19, creatinine 1.0, glucose 9.5. U rinalysis done was all negative. STUDIES: Chest x-ray as mentioned above. Electrocardiogram done today shows sinus rhythm, 1st degr ee AV block, nonspecific T-wave abnormalities, and premature ventricular contractions. Echocardiogr am done this morning showed LV systolic function low normal, EF 50% to 55%, moderate concentric LVH, mild MR, mild TR, RVSP estimated at 17 mmHg, 2 jets of aortic regurgitation noted, considered mild to moderate in severity. In comparison to previous echocardiogram done in October 2014, no significan t change. DISCHARGE DISPOSITION: Patient is discharged home in fair condition. He is under no activity restr ictions. DISCHARGE MEDICATIONS: Please see discharge medication reconciliation sheet, noting changes to his home medication regimen of increasing metoprolol tartrate to 50 mg p.o. twice daily and adding amlod ipine 2.5 mg p.o. daily. DISCHARGE INSTRUCTIONS: Discussion with the patient and his daughter about patient's premature vent ricular contractions, no malignant arrhythmias have been noted. We have discussed new medication ch maverick with the metoprolol increase and the amlodipine. Our office will arrange for the patient to [facility] 2-week Holter monitoring, and patient will follow up with Dr. Sanchez, his primary cardiolog ist, in the office in 2 weeks time. At the time of discharge, patient's daughter verbalized underst anding. Patient will be transferred back to his intermediate facility by his daughter. We have also sent all medication changes to them. At the time of discharge, the patient and his daughter ve rbalized no questions. They have been told that if there are any problems or concerns post discharg e, they are to call our office or return to the hospital. TOTAL TIME SPENT ON DISCHARGE: Greater than 30 minutes. /[id number]/MODL
== END 2016-12-25 17:58 ==
LOC: F2W 16:00
PROVIDERS: ADMIT Internal Medicine Cardiovascular Disease; ATTEND Internal Medicine Cardiovascular Disease
DX: I49.3 Ventricular premature depolarization (principal); E87.1 Hypo-osmolality and hyponatremia; R53.83 Other fatigue; I25.10 Atherosclerotic heart disease of native coronary artery without angina pectoris; E11.9 Type 2 diabetes mellitus without complications; E03.9 Hypothyroidism, unspecified; I10 Essential (primary) hypertension; G30.0 Alzheimer's disease with early onset; F02.80 Dementia in other diseases classified elsewhere, unspecified severity, without behavioral disturbance, psychotic disturbance, mood disturbance, and anxiety; Z95.5 Presence of coronary angioplasty implant and graft; Z95.1 Presence of aortocoronary bypass graft; E78.5 Hyperlipidemia, unspecified
CPT/HCPCS: 71020; 93005; 93306; 97161; 97165; G0378; G8978; G8979; G8987; G8988; J1815